=== PATIENT | male | born 1965 | race African-American/Black ===

== ENCOUNTER 2017-11-27 15:38 | Inpatient (IN) | payer OTHER ==
[2017-11-27] MEDS: NORMAL SALINE IV (16:27)
[2017-11-27] MEDS: ONDANSETRON PF 4 MG/2 ML VIAL. IV (16:35)
[2017-11-27 16:39] LABS: BASO % 0 % (0-3); EOS % 1 % (0-3); HEMATOCRIT 39.3 % (39.0-53.0); HEMOGLOBIN 13.7 g/dL (13.0-17.5); LYMPH # 0.3 x10^3/uL (1.0-4.8); LYMPH % 4 % (24-48); MEAN CORPUSCULAR HEMOGLOBIN 31 pg (25-35); MEAN CORPUSCULAR HGB CONC 35 g/dL (31-37); MEAN CORPUSCULAR VOLUME 89 fL (79-100); MONO # 0.5 x10^3/uL (0.0-1.1); MONO % 7 % (0-9); NEUT # 6.1 x10^3uL (1.8-7.7); NEUT % 88 % (31-73); PLATELET COUNT 212 x10^3/uL (140-400); RED BLOOD COUNT 4.43 x10^6/uL (4.30-5.70); RED CELL DISTRIBUTION WIDTH 13.4 % (11.5-14.5)
[2017-11-27 16:40] LABS: ADD MAN DIFF? YES
[2017-11-27 16:47] LABS: ANION GAP 13 (6-14); BLOOD UREA NITROGEN 10 mg/dL (8-26); BUN/CREATININE RATIO 9 (6-20); CALCIUM 8.9 mg/dL (8.5-10.1); CARBON DIOXIDE 23 mmol/L (21-32); CHLORIDE 102 mmol/L (98-107); CREATININE 1.1 mg/dL (0.7-1.3); GFR 84.4; GLUCOSE 98 mg/dL (70-99); POTASSIUM 3.7 mmol/L (3.5-5.1); SODIUM 138 mmol/L (136-145)
[2017-11-27 16:53] LABS: ALBUMIN 4.2 g/dL (3.4-5.0); ALBUMIN/GLOBULIN RATIO 1.1 (1.0-1.7); ALK PHOS 63 U/L (46-116); ALT (SGPT) 18 U/L (16-63); AST (SGOT) 16 U/L (15-37); TOTAL BILIRUBIN 0.4 mg/dL (0.2-1.0); TOTAL PROTEIN 7.9 g/dL (6.4-8.2)
[2017-11-27 16:58] LABS: TROPONINI < 0.017 ng/mL (0.000-0.055)
[2017-11-27 17:01] LABS: NT-PRO BNP 121 pg/mL (0-124)
[2017-11-27 17:01] LABS: CKMB INDEX 0.6 % (0-4); CREATINE KINASE 154 U/L (39-308)
[2017-11-27 17:06] LABS: INFLUENZA A PATIENT NEGATIVE (NEGATIVE); INFLUENZA B PATIENT NEGATIVE (NEGATIVE); OBC FLU VALID
[2017-11-27 17:07] LABS: LACTIC ACID 0.9 mmol/L (0.4-2.0)
[2017-11-27] MEDS ORDERED: CONTRAST GIVEN MC (17:45)
[2017-11-27] MEDS ORDERED: IOHEXOL 300 MG/ML 100ML VIAL. IV (17:45)
[2017-11-27 17:53] LABS: D-DIMER 0.29 ug/mlFEU (0.00-0.50)
[2017-11-27] MEDS: IPRATRPIUM/ALBUTEROL 0.5/2.5MG 3 ML NEBU. NEB (18:06)
[2017-11-27 18:17] LABS: % BANDS 4 % (0-9); % BASOS 1 % (0-3); % LYMPHS 6 % (24-48); % MONOS 7 % (0-10); % SEGS 82 % (35-66); PLT ESTIMATE ADEQUATE (ADEQUATE)
[2017-11-27 18:18] LABS: BILIRUBIN,URINE NEGATIVE (NEG); CLARITY,URINE CLEAR; COLOR,URINE YELLOW; GLUCOSE,URINE NEGATIVE (NEG); NITRITE,URINE NEGATIVE (NEG); PROTEIN,URINE NEGATIVE (NEG-TRACE); UROBILINOGEN,URINE 0.2 mg/dL (0.2 mg/dL)
[2017-11-27 18:35] LABS: BACTERIA,URINE 0 /HPF (0-FEW); WBC,URINE 0 /HPF (0-4)
[2017-11-27] MEDS ORDERED: ACETAMINOPHEN 325 MG TABLET. PO (23:00)
[2017-11-27] MEDS ORDERED: ALBUTEROL SULFATE 2.5 MG/3 ML NEBU. NEB (23:00)
[2017-11-27] MEDS: methylPREDNISolone SOD SUCC PF 125 MG/2 ML VIAL. IV (23:10)
[2017-11-27] MEDS: IBUPROFEN 400 MG TABLET. PO (23:25)
[2017-11-27] MEDS: POTASSIUM CL 20MEQ-0.45% NACL 1,000 ML IV (23:33)
[2017-11-28] MEDS: HYDROcodone/APAP 5/325MG 1 TAB TABLET PO ×2 (00:30→02:41)
[2017-11-28] MEDS: methylPREDNISolone SOD SUCC PF 40 MG/ML VIAL. IV (06:05)
[2017-11-28 06:54] LABS: ADD MAN DIFF? NO
[2017-11-28 07:00] LABS: BASO % 0 % (0-3); EOS % 0 % (0-3); HEMATOCRIT 35.4 % (39.0-53.0); HEMOGLOBIN 11.8 g/dL (13.0-17.5); LYMPH # 0.2 x10^3/uL (1.0-4.8); LYMPH % 4 % (24-48); MEAN CORPUSCULAR HEMOGLOBIN 30 pg (25-35); MEAN CORPUSCULAR HGB CONC 34 g/dL (31-37); MEAN CORPUSCULAR VOLUME 90 fL (79-100); MONO # 0.1 x10^3/uL (0.0-1.1); MONO % 1 % (0-9); NEUT # 4.2 x10^3uL (1.8-7.7); NEUT % 94 % (31-73); PLATELET COUNT 171 x10^3/uL (140-400); RED BLOOD COUNT 3.91 x10^6/uL (4.30-5.70); RED CELL DISTRIBUTION WIDTH 13.6 % (11.5-14.5); WHITE BLOOD COUNT 4.5 x10^3/uL (4.0-11.0)
[2017-11-28] MEDS: IPRATRPIUM/ALBUTEROL 0.5/2.5MG 3 ML NEBU. NEB ×2 (07:34→11:25)
[2017-11-28 07:35] LABS: ANION GAP 10 (6-14); BLOOD UREA NITROGEN 10 mg/dL (8-26); CALCIUM 7.9 mg/dL (8.5-10.1); CARBON DIOXIDE 22 mmol/L (21-32); CHLORIDE 107 mmol/L (98-107); CREATININE 1.1 mg/dL (0.7-1.3); GFR 84.4; GLUCOSE 132 mg/dL (70-99); POTASSIUM 4.2 mmol/L (3.5-5.1); SODIUM 139 mmol/L (136-145)
== END 2017-11-28 12:10 | disposition home or self-care (01) | DRG 191 ==
LOC: ER 15:38 → 5 SOUTH 19:38
DX: J44.1 Chronic obstructive pulmonary disease with (acute) exacerbation (principal); R65.10 Systemic inflammatory response syndrome (SIRS) of non-infectious origin without acute organ dysfunction; I95.9 Hypotension, unspecified; I10 Essential (primary) hypertension; F17.210 Nicotine dependence, cigarettes, uncomplicated; J11.1 Influenza due to unidentified influenza virus with other respiratory manifestations; K64.9 Unspecified hemorrhoids; R00.0 Tachycardia, unspecified
CPT/HCPCS: 36415; 71045; 71275; 80048; 80053; 81001; 82553; 83605; 83880; 84484; 85007; 85025; 85379; 87040; 87804; 87804-59; 93005; 94640; 96361; 96374; 99285-25; J2405; J2920; J2930; J7030; J7620

== ENCOUNTER 2019-08-16 18:42 | Emergency (ER) | payer SELFPAY ==
[~2019-08-16] VITALS: Ht 170.2 cm; Wt 68.0 kg
[~2019-08-16 18:42] MED LIST: ALBU2.5V14 NEB; OSEL75CA PO; PRED-220 PO; PRED50TA PO; VENTOLIN HFA18 GM INH
[2019-08-16] MEDS ORDERED: methylPREDNISolone SOD SUCC PF 125 MG/2 ML VIAL. IV ONE (19:00)
[2019-08-16] MEDS ORDERED: IPRATROPIUM BROMIDE 0.5 MG/2.5 ML NEBU. NEB ONE (19:00)
[2019-08-16] MEDS ORDERED: ALBUTEROL SULFATE 2.5 MG/3 ML NEBU. CONT NEB ONE (19:00)
[2019-08-16 19:06] LABS: BASO % 1 % (0-3); EOS # 0.4 x10^3/uL (0.0-0.7); EOS % 6 % (0-3); HEMATOCRIT 41.2 % (39.0-53.0); HEMOGLOBIN 14.2 g/dL (13.0-17.5); LYMPH # 1.4 x10^3/uL (1.0-4.8); LYMPH % 25 % (24-48); MEAN CORPUSCULAR HEMOGLOBIN 31 pg (25-35); MEAN CORPUSCULAR HGB CONC 35 g/dL (31-37); MEAN CORPUSCULAR VOLUME 90 fL (79-100); MONO # 0.6 x10^3/uL (0.0-1.1); MONO % 11 % (0-9); NEUT # 3.3 x10^3/uL (1.8-7.7); NEUT % 57 % (31-73); PLATELET COUNT 201 x10^3/uL (140-400); RED BLOOD COUNT 4.58 x10^6/uL (4.30-5.70); RED CELL DISTRIBUTION WIDTH 13.6 % (11.5-14.5); WHITE BLOOD COUNT 5.8 x10^3/uL (4.0-11.0)
--- NOTE | 2019-08-16 19:10 | PHYS DOC ---
Past Medical History Past Medical History: COPD Past Surgical History: Other Additional Past Surgical Histo: HEMORRHOID Alcohol Use: Occasionally Drug Use: None Adult General Chief Complaint Chief Complaint: SHORTNESS OF BREATH HPI HPI Patient is a 54-year-old male who presents with complaint of shortness of breath that started earlier today. Patient states that he had been using his nebulizer throughout the day as well as inhalers without improvement. Patient gotten so short of breath that he called EMS and EMS had given a breathing treatment while in route. Patient does indicate that he is still feeling very short of breath. EMS states that patient's oxygen saturation was 94% on room air. Patient denies any chest pain. He also denies any fever. He does indicate he has a history of asthma.[] Review of Systems Review of Systems Constitutional: Denies fever or chills [] Respiratory: Denies cough or shortness of breath [] Cardiovascular: No additional information not addressed in HPI [] Integument: Denies rash or skin lesions [] Neurologic: Denies headache, focal weakness or sensory changes [] All other systems were reviewed and found to be within normal limits, except as documented in this note. Current Medications Current Medications Current Medications Medications (Trade) Dose Ordered Sig/Melo Start Time Stop Time Status Last Admin Dose Admin Albuterol Sulfate (Ventolin Neb Soln) 10 mg 1X ONCE 08/16/19 19:00 08/16/19 19:01 DC 08/16/19 18:54 10 MG Ipratropium [place] (Atrovent) 0.5 mg 1X ONCE 08/16/19 19:00 08/16/19 19:01 DC 08/16/19 18:53 0.5 MG Methylprednisolone Sodium Succinate (SOLU-Medrol 125MG VIAL) 125 mg 1X ONCE 08/16/19 19:00 08/16/19 19:01 DC 08/16/19 19:00 125 MG Allergies Allergies Allergies Coded Allergies Type Severity Reaction Last Updated Verified No Known Drug Allergies 11/27/17 No Physical Exam Physical Exam Constitutional: Well developed, well nourished, no acute distress, non-toxic appearance. [] HENT: Normocephalic, atraumatic, bilateral external ears normal, oropharynx moist, no oral exudates, nose normal. [] Eyes: PERRLA, EOMI, conjunctiva normal, no discharge. [] Neck: Normal range of motion, no tenderness, supple, no stridor. [] Cardiovascular: Regular rate and rhythm[] Lungs & Thorax: Diminished breath sounds are noted bilaterally with fine inspiratory and expiratory wheezes to auscultation [] Abdomen: Bowel sounds normal, soft, no tenderness, no masses, no pulsatile masses. [] Skin: Warm, dry, no erythema, no rash. [] Extremities: No tenderness, no cyanosis, no clubbing, ROM intact, no edema. [] Neurologic: Alert and oriented X 3, no focal deficits noted. [] Current Patient Data Vital Signs Vital Signs Date Time Temp Pulse Resp B/P (MAP) Pulse Ox O2 Delivery O2 Flow Rate FiO2 08/16/19 18:55 94 Room Air 08/16/19 18:42 97.8 102 30 130/90 (103) 97.8 Lab Values Laboratory Tests Test 08/16/19 18:52 White Blood Count 5.8 x10^3/uL (4.0-11.0) Red Blood Count 4.58 x10^6/uL (4.30-5.70) Hemoglobin 14.2 g/dL (13.0-17.5) Hematocrit 41.2 % (39.0-53.0) Mean Corpuscular Volume 90 fL (79-100) Mean Corpuscular Hemoglobin 31 pg (25-35) Mean Corpuscular Hemoglobin Concent 35 g/dL (31-37) Red Cell Distribution Width 13.6 % (11.5-14.5) Platelet Count 201 x10^3/uL (140-400) Neutrophils (%) (Auto) 57 % (31-73) Lymphocytes (%) (Auto) 25 % (24-48) Monocytes (%) (Auto) 11 % (0-9) H Eosinophils (%) (Auto) 6 % (0-3) H Basophils (%) (Auto) 1 % (0-3) Neutrophils # (Auto) 3.3 x10^3/uL (1.8-7.7) Lymphocytes # (Auto) 1.4 x10^3/uL (1.0-4.8) Monocytes # (Auto) 0.6 x10^3/uL (0.0-1.1) Eosinophils # (Auto) 0.4 x10^3/uL (0.0-0.7) Basophils # (Auto) 0.0 x10^3/uL (0.0-0.2) D-Dimer ([place]) < 0.27 ug/mlFEU Sodium Level 145 mmol/L (136-145) Potassium Level 4.0 mmol/L (3.5-5.1) Chloride Level 110 mmol/L (98-107) H Carbon Dioxide Level 26 mmol/L (21-32) Anion Gap 9 (6-14) Blood Urea Nitrogen 10 mg/dL (8-26) Creatinine 1.1 mg/dL (0.7-1.3) Estimated GFR (Cockcroft-Gault) 83.8 BUN/Creatinine Ratio 9 (6-20) Glucose Level 93 mg/dL (70-99) Calcium Level 9.3 mg/dL (8.5-10.1) Total Bilirubin 0.2 mg/dL (0.2-1.0) Aspartate Amino Transferase (AST) 21 U/L (15-37) Alanine Aminotransferase (ALT) 26 U/L (16-63) Alkaline Phosphatase 76 U/L (46-116) Troponin I Quantitative < 0.017 ng/mL (0.000-0.055) QH-Sqn-Y-Type Natriuretic Peptide 36 pg/mL (0-124) Total Protein 7.1 g/dL (6.4-8.2) Albumin 3.9 g/dL (3.4-5.0) Albumin/Globulin Ratio 1.2 (1.0-1.7) Laboratory Tests 08/16/19 18:52 Laboratory Tests 08/16/19 18:52 EKG EKG [] Interpretation Time: EKG demonstrates normal sinus rhythm with rate of 92. Radiology/Procedures Radiology/Procedures [] Impressions: PROCEDURE: PORTABLE CHEST 1V PORTABLE CHEST 1V Clinical History: Dyspnea Technique: AP view of the chest was obtained at 08/16/2019 6:47 PM. Comparison: May 09, 2019. Findings: The cardiomediastinal silhouette is normal. The pulmonary vasculature is normal. The lungs and pleural margins are clear. Impression: No evidence of an acute cardiopulmonary process. Electronically signed by: Nicolas Benitez III, MD (08/16/2019 7:15 PM) [facility] DICTATED and SIGNED BY: NICOLAS BENITEZ III, MD DATE: 08/16/191914 Course & Med Decision Making Course & Med Decision Making Pertinent Labs and Imaging studies reviewed. (See chart for details) Patient moved to room upon arrival was evaluated by your medical staff after which an IV was established and blood work was drawn. Patient was given 1 hour continuous nebulizer treatment. Chest x-ray was completed and was unremarkable. Patient's blood work unremarkable as well. Patient reevaluated after respiratory treatment and stating that he is feeling much better at this time. We did discuss options of admission versus discharge home with outpatient steroids and patient indicates that he would like to be discharged home. Patient's oxygen saturation noted to be 95-96% on room air. Repeat auscultation of the lungs demonstrates much better air movement at this time with only a few end expiratory wheezes noted. Patient will be discharged home. Dragon Disclaimer Dragon Disclaimer This electronic medical record was generated, in whole or in part, using a voice recognition dictation system. Departure Departure Impression: Primary Impression: COPD exacerbation Disposition: 01 HOME, SELF-CARE Condition: STABLE Referrals: ELIAS HANCOCK MD (PCP) Patient Instructions: Chronic Obstructive Pulmonary Disease Exacerbation Scripts Methylprednisolone (MEDROL) 4 Mg Tab.ds.pk 1 PKG PO UD, #1 PKG Prov: FORTINO HIRSCH Jr. DO 08/16/19 FORTINO HIRSCH Jr. DO Aug 16, 2019 19:10
--- NOTE | 2019-08-16 19:18 | RAD ---
PORTABLE CHEST 1V Clinical History: Dyspnea Technique: AP view of the chest was obtained at 08/16/2019 6:47 PM. Comparison: May 09, 2019. Findings: The cardiomediastinal silhouette is normal. The pulmonary vasculature is normal. The lungs and pleural margins are clear. Impression: No evidence of an acute cardiopulmonary process. Electronically signed by: Lalo Benitez III, MD (08/16/2019 7:15 PM) [facility]
[2019-08-16 19:29] LABS: CALCIUM 9.3 mg/dL (8.5-10.1); CREATININE 1.1 mg/dL (0.7-1.3); GFR 83.8
[2019-08-16 19:35] LABS: ALBUMIN 3.9 g/dL (3.4-5.0); ALBUMIN/GLOBULIN RATIO 1.2 (1.0-1.7); TOTAL BILIRUBIN 0.2 mg/dL (0.2-1.0); TOTAL PROTEIN 7.1 g/dL (6.4-8.2)
[2019-08-16 20:21] VITALS: BP 135/89
[2019-08-16] MEDS ORDERED: METH4TAB2 PO (20:32)
--- NOTE | 2019-08-17 05:51 | EKG ---
[facility] [address] [place] [address] Test Date: 2019-08-16 Test Time: 19:06:54 Pat Name: TOD HIRSCH Department: Room: Gender: M Home Health Care Social Worker: : 1965 Requested By: FORTINO HIRSCH Order Number: [id number] Reading MD: Measurements Intervals [place] Rate: 92 P: 44 NH: 180 QRS: 88 QRSD: 76 T: 63 QT: 326 QTc: 407 Interpretive Statements SINUS RHYTHM NON SPECIFIC ST-T ABNORMALITY (ELEVATION) OTHERWISE NORMAL ECG No previous ECG available for comparison
== END 2019-08-16 20:52 | disposition home or self-care (01) ==
LOC: ER 18:42
DX: J44.1 Chronic obstructive pulmonary disease with (acute) exacerbation (principal)
CPT/HCPCS: 36415; 71045; 80053; 83880; 84484; 85025; 85379; 93005; 94644; 96374; 99285; J2930; J7613; J7644

== ENCOUNTER 2019-11-03 11:45 | Emergency (ER) | payer SELFPAY ==
[~2019-11-03] VITALS: Ht 170.2 cm; Wt 68.0 kg
[~2019-11-03 11:45] MED LIST changes: +METH4TAB2 PO
[2019-11-03 12:20] LABS: BASO % 1 % (0-3); EOS # 0.4 x10^3/uL (0.0-0.7); EOS % 5 % (0-3); HEMATOCRIT 42.8 % (39.0-53.0); HEMOGLOBIN 14.9 g/dL (13.0-17.5); LYMPH # 1.3 x10^3/uL (1.0-4.8); LYMPH % 18 % (24-48); MEAN CORPUSCULAR HEMOGLOBIN 31 pg (25-35); MEAN CORPUSCULAR HGB CONC 35 g/dL (31-37); MEAN CORPUSCULAR VOLUME 89 fL (79-100); MONO # 0.5 x10^3/uL (0.0-1.1); MONO % 7 % (0-9); NEUT % 69 % (31-73); PLATELET COUNT 223 x10^3/uL (140-400); RED CELL DISTRIBUTION WIDTH 13.4 % (11.5-14.5); WHITE BLOOD COUNT 7.3 x10^3/uL (4.0-11.0)
[2019-11-03] MEDS: IPRATRPIUM/ALBUTEROL 0.5/2.5MG 3 ML NEBU. NEB ONE (12:24)
[2019-11-03] MEDS: IV NORMAL SALINE 1000ML BAG 1,000 ML IV ONE (12:26)
--- NOTE | 2019-11-03 12:32 | PHYS DOC ---
Past Medical History Past Medical History: COPD Past Surgical History: Other Additional Past Surgical Histo: HEMORRHOID Smoking: Cigarettes Alcohol Use: Occasionally Drug Use: None Adult General Chief Complaint Chief Complaint: SHORTNESS OF BREATH HPI HPI Patient is a 54 year old male with PMH of COPD who presents with SOB. Pt reports having SOB and non productive cough started 2 days ago. He also has some URI for the past few days. Pt tried to used his Nebulizer at home without minimal relieve. Pt has not received flu or pneumonia shot. Denies any chest pain, N/V. He was at the ED for similar symptoms and was diagnosed with COPD exacerabation 2 months ago. Denies any recent travel, sick contact. Review of Systems Review of Systems Constitutional: Denies fever or chills Eyes: Denies redness or eye pain HENT: Denies nasal congestion or sore throat Respiratory: Positive cough or shortness of breath Cardiovascular: Denies chest pain or palpitations GI: Denies abdominal pain, nausea, or vomiting : Denies dysuria or hematuria Musculoskeletal: Denies back pain or joint pain Integument: Denies rash or skin lesions Neurologic: Denies headache, focal weakness or sensory changes Complete systems were reviewed and found to be within normal limits, except as documented in this note. Current Medications Current Medications Current Medications Medications (Trade) Dose Ordered Sig/Melo Start Time Stop Time Status Last Admin Dose Admin Albuterol/ Ipratropium (Duoneb) 3 ml 1X ONCE 11/03/19 12:15 11/03/19 12:16 DC 11/03/19 12:24 3 ML Dexamethasone (Decadron) 10 mg 1X ONCE 11/03/19 13:15 11/03/19 13:17 DC Sodium Chloride 1,000 ml @ 1,000 mls/hr 1X ONCE 11/03/19 12:15 11/03/19 13:14 DC 11/03/19 12:26 1,000 MLS/HR Allergies Allergies Allergies Coded Allergies Type Severity Reaction Last Updated Verified No Known Drug Allergies 11/27/17 No Physical Exam Physical Exam Constitutional: Well developed, well nourished, no acute distress, non-toxic appearance HENT: Normocephalic, atraumatic, oropharynx moist Eyes: PERRL, EOMI, conjunctiva normal, no discharge Neck: Normal range of motion, no tenderness, supple Cardiovascular: Heart rate normal, regular rhythm Lungs & Thorax: bilateral diffuse expiratory wheezing, no crackle Abdomen: Soft, no tenderness Skin: Warm, dry, no erythema, no rash Back: No tenderness, no CVA tenderness Extremities: No tenderness, ROM intact, no edema Neurologic: Alert and oriented X 3, normal motor function, normal sensory function, no focal deficits noted Psychologic: Affect normal, judgement normal, mood normal Current Patient Data Vital Signs Vital Signs Date Time Temp Pulse Resp B/P (MAP) Pulse Ox O2 Delivery O2 Flow Rate FiO2 11/03/19 12:24 96 Room Air 11/03/19 11:55 97.6 89 24 121/81 (94) 97.6 Lab Values Laboratory Tests Test 11/03/19 12:05 11/03/19 12:30 White Blood Count 7.3 x10^3/uL (4.0-11.0) Red Blood Count 4.80 x10^6/uL (4.30-5.70) Hemoglobin 14.9 g/dL (13.0-17.5) Hematocrit 42.8 % (39.0-53.0) Mean Corpuscular Volume 89 fL (79-100) Mean Corpuscular Hemoglobin 31 pg (25-35) Mean Corpuscular Hemoglobin Concent 35 g/dL (31-37) Red Cell Distribution Width 13.4 % (11.5-14.5) Platelet Count 223 x10^3/uL (140-400) Neutrophils (%) (Auto) 69 % (31-73) Lymphocytes (%) (Auto) 18 % (24-48) L Monocytes (%) (Auto) 7 % (0-9) Eosinophils (%) (Auto) 5 % (0-3) H Basophils (%) (Auto) 1 % (0-3) Neutrophils # (Auto) 5.0 x10^3/uL (1.8-7.7) Lymphocytes # (Auto) 1.3 x10^3/uL (1.0-4.8) Monocytes # (Auto) 0.5 x10^3/uL (0.0-1.1) Eosinophils # (Auto) 0.4 x10^3/uL (0.0-0.7) Basophils # (Auto) 0.0 x10^3/uL (0.0-0.2) Sodium Level 139 mmol/L (136-145) Potassium Level 3.8 mmol/L (3.5-5.1) Chloride Level 105 mmol/L (98-107) Carbon Dioxide Level 24 mmol/L (21-32) Anion Gap 10 (6-14) Blood Urea Nitrogen 9 mg/dL (8-26) Creatinine 1.1 mg/dL (0.7-1.3) Estimated GFR (Cockcroft-Gault) 83.8 BUN/Creatinine Ratio 8 (6-20) Glucose Level 97 mg/dL (70-99) Lactic Acid Level 1.0 mmol/L (0.4-2.0) Calcium Level 9.0 mg/dL (8.5-10.1) Magnesium Level 1.9 mg/dL (1.8-2.4) Total Bilirubin 0.6 mg/dL (0.2-1.0) Aspartate Amino Transferase (AST) 19 U/L (15-37) Alanine Aminotransferase (ALT) 21 U/L (16-63) Alkaline Phosphatase 63 U/L (46-116) Creatine Kinase 144 U/L (39-308) Creatine Kinase MB (Mass) 1.4 ng/mL (0.0-3.6) Creatine Kinase MB Relative Index 1.0 % (0-4) Troponin I Quantitative < 0.017 ng/mL (0.000-0.055) UC-[place]-N-Type Natriuretic Peptide 67 pg/mL (0-124) Total Protein 7.8 g/dL (6.4-8.2) Albumin 4.0 g/dL (3.4-5.0) Albumin/Globulin Ratio 1.1 (1.0-1.7) Influenza Type A Antigen Negative (NEGATIVE) Influenza Type B Antigen Negative (NEGATIVE) Laboratory Tests 11/03/19 12:05 Laboratory Tests 11/03/19 12:05 EKG EKG 11:59:22 sinus rhythm with rate of 89. Wandering baseline. No ST elevation. Radiology/Procedures Radiology/Procedures [] Course & Med Decision Making Course & Med Decision Making Pertinent Labs and Imaging studies reviewed. (See chart for details) Patient is a 54 year old male with PMH of COPD who presents with SOB. DDX considered: COPD exacerbation, PNA, URI, bronchitis, ACS, doubt PE base on unrem arkable vitals, HPI and PE exams. Will order labs, CXR, EKG. Provide DuoNeb at bedside. 1:12pm unremarkable labs, neg troponin I. neg flu. CXR shows now acute process. Most likely COPD exacerbation. 1:36 pm Pt improved with no wheezing. Dispo: Will discharge. Shana Disclaimer Dragon Disclaimer This electronic medical record was generated, in whole or in part, using a voice recognition dictation system. Departure Departure Impression: Primary Impression: COPD exacerbation Disposition: 01 HOME, SELF-CARE Condition: STABLE Referrals: ELIAS HANCOCK MD (PCP) Patient Instructions: Chronic Obstructive Pulmonary Disease Exacerbation, [id number], Shortness of Breath, [id number] Scripts Benzonatate (TESSALON PERLE) 100 Mg Capsule 100 MG PO TID PRN for COUGH, #20 CAP Prov: DASHA RANDLE DO 11/03/19 Prednisone (PREDNISONE) 20 Mg Tablet 2 TAB PO DAILY, #8 TAB Prov: DASHA RANDLE DO 11/03/19 Albuterol Sulfate (ALBUTEROL SULFATE CONC NEB SOLN) 2.5 Mg/0.5 Ml Vial.neb 1 VIAL NEB Q4-6HRS PRN for WHEEZING, #60 VIAL Prov: DASHA RANDLE DO 11/03/19 Albuterol Sulfate (Proair Hfa) 8.5 Gm Hfa.aer.ad 2 PUFF IH PRN Q4-6HRS PRN for wheezing for 21 Days, #1 INHALER 0 Refills Prov: DASHA RANDLE DO 11/03/19 DASHA RANDLE DO Nov 03, 2019 12:32
[2019-11-03 12:33] LABS: CREATININE 1.1 mg/dL (0.7-1.3); GFR 83.8; POTASSIUM 3.8 mmol/L (3.5-5.1)
[2019-11-03 12:40] LABS: ALBUMIN/GLOBULIN RATIO 1.1 (1.0-1.7); MAGNESIUM 1.9 mg/dL (1.8-2.4); TOTAL BILIRUBIN 0.6 mg/dL (0.2-1.0); TOTAL PROTEIN 7.8 g/dL (6.4-8.2)
--- NOTE | 2019-11-03 12:55 | RAD ---
Chest radiograph 11/03/2019 12:10 PM INDICATION: Dyspnea 08/16/2019 COMPARISON: None available TECHNIQUE: Frontal and lateral views of the chest are provided. FINDINGS: The cardiomediastinal silhouette is within normal limits. There are no pleural effusions. There is no pulmonary vascular congestion. There is no pneumothorax. The lungs are clear. No significant osseous abnormality is identified. IMPRESSION: No acute cardiopulmonary process. Electronically signed by: Shira Cao MD (11/03/2019 12:52 PM) [facility]
[2019-11-03 12:56] LABS: INFLUENZA A PATIENT NEGATIVE (NEGATIVE); INFLUENZA B PATIENT NEGATIVE (NEGATIVE)
[2019-11-03] MEDS ORDERED: ALBU2.5V14 NEB (13:27)
[2019-11-03] MEDS ORDERED: ALBU2.5V8 IH (13:27)
[2019-11-03] MEDS ORDERED: PRED20TA PO (13:27)
[2019-11-03] MEDS ORDERED: BENZ100C PO (13:27)
[2019-11-03 13:39] VITALS: BP 130/87
[2019-11-03] MEDS: DEXAMETHASONE 4 MG TABLET PO ONE (13:39)
--- NOTE | 2019-11-04 06:03 | EKG ---
[facility] [address] [place] [address] Test Date: 2019-11-03 Test Time: 11:59:22 Pat Name: TOD HIRSCH Department: Room: Gender: M Director Of Partnerships: : 1965 Requested By: DASHA RANDLE Order Number: [id number] Reading MD: Measurements Intervals [place] Rate: 88 P: 61 SC: 166 QRS: 84 QRSD: 82 T: 53 QT: 340 QTc: 414 Interpretive Statements SINUS RHYTHM NORMAL ECG No previous ECG available for comparison
== END 2019-11-03 13:50 | disposition home or self-care (01) ==
LOC: ER 11:45
DX: J44.1 Chronic obstructive pulmonary disease with (acute) exacerbation (principal); R06.02 Shortness of breath; F17.210 Nicotine dependence, cigarettes, uncomplicated; Z98.890 Other specified postprocedural states
CPT/HCPCS: 36415; 71046; 80053; 82553; 83605; 83735; 83880; 84484; 85025; 87804; 93005; 94640; 99285; J7030; J7620; J8540

== ENCOUNTER 2020-06-26 03:05 | Emergency (ER) | payer OTHER ==
[~2020-06-26] VITALS: Ht 180.3 cm; Wt 72.7 kg
[~2020-06-26 03:05] MED LIST changes: +ALBU2.5V8 IH; +BENZ100C PO; +PRED20TA PO
[2020-06-26 03:49] LABS: BASO % 0 % (0-3); EOS # 0.2 x10^3/uL (0.0-0.7); EOS % 1 % (0-3); HEMATOCRIT 43.2 % (39.0-53.0); HEMOGLOBIN 14.7 g/dL (13.0-17.5); LYMPH # 1.3 x10^3/uL (1.0-4.8); LYMPH % 12 % (24-48); MEAN CORPUSCULAR HEMOGLOBIN 31 pg (25-35); MEAN CORPUSCULAR HGB CONC 34 g/dL (31-37); MEAN CORPUSCULAR VOLUME 91 fL (79-100); MONO # 0.9 x10^3/uL (0.0-1.1); MONO % 8 % (0-9); NEUT # 8.9 x10^3/uL (1.8-7.7); NEUT % 79 % (31-73); PLATELET COUNT 205 x10^3/uL (140-400); RED BLOOD COUNT 4.73 x10^6/uL (4.30-5.70); WHITE BLOOD COUNT 11.3 x10^3/uL (4.0-11.0)
[2020-06-26 03:58] LABS: CALCIUM 8.8 mg/dL (8.5-10.1); CREATININE 1.2 mg/dL (0.7-1.3); GFR 75.5; POTASSIUM 3.4 mmol/L (3.5-5.1)
[2020-06-26 04:04] LABS: ALBUMIN 3.9 g/dL (3.4-5.0); C-REACTIVE PROTEIN 2.6 mg/L (0-3.3); TOTAL BILIRUBIN 0.5 mg/dL (0.2-1.0); TOTAL PROTEIN 7.7 g/dL (6.4-8.2)
[2020-06-26] MEDS ORDERED: IPRATRPIUM/ALBUTEROL 0.5/2.5MG 3 ML NEBU. NEB ONE (05:15)
[2020-06-26] MEDS ORDERED: DEXAMETHASONE SOD PHOS 20 MG/5 ML VIAL. IVP ONE (05:15)
--- NOTE | 2020-06-26 05:47 | RAD ---
Study: CR CHEST AP ONLY Indication: Cough. Comparison: 11/03/2019 Findings: Unchanged cardiomediastinal silhouette and she. The aeration pattern of both lungs is similar to the 11/03/2019 comparison. The diaphragm is flattened. No pneumothorax, lobar consolidation or layering effusion. Atherosclerotic calcifications at the aortic arch. Impression: 1. No newly seen localized airspace abnormality throughout either lung. Note is made that an atypical infectious process cannot be excluded based off the results of this study alone. 2. Redemonstrated findings typical of emphysema. Electronically signed by: LETICIA GAMA MD (06/26/2020 5:44 AM) [id number]
--- NOTE | 2020-06-26 06:28 | PHYS DOC ---
Past Medical History Past Medical History: COPD (NAHOMY SPIVEY MD) Past Surgical History: Other Additional Past Surgical Histo: HEMORRHOID (NAHOMY SPIVEY MD) Smoking Status: Current Every Day Smoker Alcohol Use: None Drug Use: None (NAHOMY SPIVEY MD) General Adult EDM: Chief Complaint: SHORTNESS OF BREATH HPI: HPI: Patient is a 55-year-old male who presents to the emergency room complaining of shortness of breath. He states that this started over the last couple of days. He states he ran out of his inhalers. He denies any cough, fever, chills, sweats, abdominal pain, nausea, vomiting, chest pain. He states he just feels very out of breath. He tried a DuoNeb treatment at home without relief. The last time he was on steroids was 3 months ago. He is never required intubation for COPD. (NAHOMY SPIVEY MD) Review of Systems: Review of Systems: General: Denies fever, chills, sweats, fatigue Eyes: Denies drainage, blurred vision, eye redness HENT: Denies rhinorrhea, sore throat, earache Respiratory: Denies cough. Reports shortness of breath, wheezing Cardiac: Denies edema, palpitations, chest pain GI: Denies abdominal pain, Nausea, vomiting MSK: Denies back pain, neck pain Skin: Denies rash, jaundice Neuro: Denies headache, dizziness Psychiatric: Denies SI/HI (NAHOMY SPIVEY MD) Heart Score: Risk Factors: Risk Factors: DM, Current or recent (<one month) smoker, HTN, HLP, family history of CAD, obesity. Risk Scores: Score 0 - 3: 2.5% MACE over next 6 weeks - Discharge Home Score 4 - 6: 20.3% MACE over next 6 weeks - Admit for Clinical Observation Score 7 - 10: 72.7% MACE over next 6 weeks - Early Invasive Strategies (NAHOMY SPIVEY MD) Current Medications: Current Medications Medications (Trade) Dose Ordered Sig/Melo Start Time Stop Time Status Last Admin Dose Admin Albuterol/ Ipratropium (Duoneb) 3 ml 1X ONCE 06/26/20 05:15 06/26/20 05:16 DC 06/26/20 05:37 3 ML Dexamethasone Sodium Phosphate (Decadron) 10 mg 1X ONCE 06/26/20 05:15 06/26/20 05:16 DC 06/26/20 05:26 10 MG (NAHOMY SPIVEY MD) Allergies: Allergies: Allergies Coded Allergies Type Severity Reaction Last Updated Verified No Known Drug Allergies 11/27/17 No (NAHOMY SPIVEY MD) Physical Exam: PE: General: Awake, alert, NAD. Well Nourished, well hydrated. Cooperative HEENT: Atraumatic, EOMI, PERRL, airway patent, moist oral mucosa Neck: Supple, trachea midline Respiratory: CTA bilaterally, normal effort, mild diffuse wheezing CV: RRR, no murmur, cap refill <2 GI: Soft, nondistended, nontender, no masses MSK: No obvious deformities Skin: Warm, dry, intact Neuro: A&O x3, speech NL, sensory and motor grossly intact, no focal deficits Psych: Normal affect, normal mood, not suicidal or homicidal (NAHOMY SPIVEY MD) Current Patient Data: Labs: Laboratory Tests Test 06/26/20 03:30 White Blood Count 11.3 x10^3/uL (4.0-11.0) H Red Blood Count 4.73 x10^6/uL (4.30-5.70) Hemoglobin 14.7 g/dL (13.0-17.5) Hematocrit 43.2 % (39.0-53.0) Mean Corpuscular Volume 91 fL (79-100) Mean Corpuscular Hemoglobin 31 pg (25-35) Mean Corpuscular Hemoglobin Concent 34 g/dL (31-37) Red Cell Distribution Width 13.0 % (11.5-14.5) Platelet Count 205 x10^3/uL (140-400) Neutrophils (%) (Auto) 79 % (31-73) H Lymphocytes (%) (Auto) 12 % (24-48) L Monocytes (%) (Auto) 8 % (0-9) Eosinophils (%) (Auto) 1 % (0-3) Basophils (%) (Auto) 0 % (0-3) Neutrophils # (Auto) 8.9 x10^3/uL (1.8-7.7) H Lymphocytes # (Auto) 1.3 x10^3/uL (1.0-4.8) Monocytes # (Auto) 0.9 x10^3/uL (0.0-1.1) Eosinophils # (Auto) 0.2 x10^3/uL (0.0-0.7) Basophils # (Auto) 0.0 x10^3/uL (0.0-0.2) D-Dimer ([place]) < 0.27 ug/mlFEU Sodium Level 139 mmol/L (136-145) Potassium Level 3.4 mmol/L (3.5-5.1) L Chloride Level 103 mmol/L (98-107) Carbon Dioxide Level 25 mmol/L (21-32) Anion Gap 11 (6-14) Blood Urea Nitrogen 12 mg/dL (8-26) Creatinine 1.2 mg/dL (0.7-1.3) Estimated GFR (Cockcroft-Gault) 75.5 BUN/Creatinine Ratio 10 (6-20) Glucose Level 104 mg/dL (70-99) H Calcium Level 8.8 mg/dL (8.5-10.1) Total Bilirubin 0.5 mg/dL (0.2-1.0) Aspartate Amino Transferase (AST) 36 U/L (15-37) Alanine Aminotransferase (ALT) 38 U/L (16-63) Alkaline Phosphatase 79 U/L (46-116) Lactate Dehydrogenase 158 U/L (85-227) Creatine Kinase 206 U/L (39-308) Troponin I Quantitative < 0.017 ng/mL (0.000-0.055) C-Reactive Protein, Quantitative 2.6 mg/L (0-3.3) JQ-Wwm-M-Type Natriuretic Peptide 36 pg/mL (0-124) Total Protein 7.7 g/dL (6.4-8.2) Albumin 3.9 g/dL (3.4-5.0) Albumin/Globulin Ratio 1.0 (1.0-1.7) Laboratory Tests 06/26/20 03:30 Laboratory Tests 06/26/20 03:30 Vital Signs: Vital Signs Date Time Temp Pulse Resp B/P (MAP) Pulse Ox O2 Delivery O2 Flow Rate FiO2 06/26/20 05:37 99 Room Air 06/26/20 03:22 97.4 101 33 114/89 (97) 97.4 (NAHOMY SPIVEY MD) EKG: EKG: [] (NAHOMY SPIVEY MD) Radiology/Procedures: Radiology/Procedures: [] (NAHOMY SPIVEY MD) Course & Med Decision Making: Course & Med Decision Making Pertinent Labs and Imaging studies reviewed. (See chart for details) Patient is a 55-year-old male with past medical history of COPD who presents the emergency room complaining of shortness of breath. Patient has some mild wheezing. He does not have any hypoxia at this time. It appears that he is having a mild COPD exacerbation. He will be given Decadron and a DuoNeb treatment here in the emergency room. Patient discussed with oncoming physician who will assume care. At checkout reevaluation was pending. (NAHOMY SPIVEY MD) Course & Med Decision Making Patient reevaluated after breathing treatment, speaking in full sentences with no respiratory distress. Patient's lung sounds are now clear. Patient states he is feeling much better. Is requesting a refill for his Symbicort. Will prescribe prednisone and albuterol. Chest x-ray with no typical infectious process. Will DC home with strict ED return precautions for increased work of breathing or shortness of breath. Encouraged urgent outpatient follow-up with PMD and pulmonology. Life-threatening processes were considered but are low suspicion at this time, given history and physical exam. Pt was educated on all prescription medications and adverse effects. All patient's questions were answered and pt was stable at time of discharge. Differential includes acute myocardial infarction, aortic dissection, congestive heart failure, esophageal injury including rupture, surgical abdomen, arrhythmia, cardiomyopathy, myocarditis, pericarditis, peptic ulcer disease, pneumomediastinum, pneumonia, pneumothorax, pulmonary embolus, unstable angina, rib fracture, contusion, pericardial tamponade or effusion, pulmonary contusion I spoken with the patient and her caregivers. I explained the patient's condition, diagnoses and treatment plan based on the information available to me at this time. I have answered the patient and her caregiver's questions and addressed any concerns. The patient and her caregivers have a good understanding of patient's diagnosis, condition and treatment plan as can be expected at this point. Vital signs have been stable. Patient's condition is stable and appropriate for discharge from the emergency department. Patient will pursue further outpatient evaluation with primary care physician or other designated or consulting physician as outlined in the discharge instructions. The patient and/or caregivers are agreeable to this plan of care and follow-up instructions have been explained in detail. The patient and/or caregivers have received these instructions in written form and have expressed an understanding of the discharge instructions. The patient and/or caregivers are aware that any significant change of condition or worsening of symptoms should prompt immediate return to this or the closest emergency department or call to 911. (RONALD LICONA DO) Dragon Disclaimer: Dragon Disclaimer: This electronic medical record was generated, in whole or in part, using a voice recognition dictation system. (NAHOMY SPIVEY MD) Departure Departure Impression: Primary Impression: COPD exacerbation Disposition: HOME, SELF-CARE Condition: STABLE Referrals: ELIAS HANCOCK MD (PCP) Patient Instructions: Chronic Obstructive Pulmonary Disease Exacerbation Additional Instructions: Howard Roberson MD-[facility] Address: [address] [place] [address] Scripts Prednisone (PREDNISONE) 20 Mg Tablet 2 TAB PO DAILY for 4 Days, #8 TAB Prov: RONALD LICONA DO 06/26/20 Budesonide/Formoterol Fumarate (SYMBICORT 80-4.5 MCG INHALER) 10.2 Gm Hfa.aer.ad 2 PUFF IH BID, #10.2 GM 0 Refills Prov: RONALD LICONA DO 06/26/20 Albuterol Sulfate (VENTOLIN HFA INHALER) 18 Gm Hfa.aer.ad 2 PUFF INH QID for FOR ASTHMA, #1 INHALER 0 Refills Prov: RONALD LICONA DO 06/26/20 Justicifation of Admission Dx: Justifications for Admission: Justification of Admission Dx: N/A (NAHOMY SPIVEY MD) Justification of Admission Dx: N/A (RONALD LICONA DO) NAHOMY SPIVEY MD Jun 26, 2020 06:28 RONALD LICONA DO Jun 26, 2020 07:56
[2020-06-26] MEDS ORDERED: PRED20TA PO (07:56)
[2020-06-26] MEDS ORDERED: BUDE10.22 IH (07:56)
[2020-06-26] MEDS ORDERED: VENTOLIN HFA18 GM INH (07:56)
[2020-06-26 07:58] VITALS: BP 121/90
--- NOTE | 2020-06-26 08:03 | EKG ---
[facility] [address] [place] [address] Test Date: 2020-06-26 Test Time: 03:37:51 Pat Name: TOD HIRSCH Department: Room: Gender: M Erisa Attorney: : 1965 Requested By: NAHOMY SPIVEY Order Number: [id number] Reading MD: Measurements Intervals [place] Rate: 96 P: 90 [place]: 186 QRS: 91 QRSD: 80 T: 54 QT: 334 QTc: 428 Interpretive Statements SINUS RHYTHM RIGHTWARD AXIS QRS(T) CONTOUR ABNORMALITY CONSIDER ANTEROSEPTAL MYOCARDIAL DAMAGE POSSIBLY ABNORMAL ECG RI6.02 No previous ECG available for comparison
== END 2020-06-26 07:59 | disposition home or self-care (01) ==
LOC: ER 03:05
DX: J44.1 Chronic obstructive pulmonary disease with (acute) exacerbation (principal); F17.200 Nicotine dependence, unspecified, uncomplicated
CPT/HCPCS: 36415; 71045; 80053; 82550; 83615; 83880; 84484; 85025; 85379; 86140; 93005; 94640; 96374; 99285; J1100

== ENCOUNTER 2021-04-21 23:48 | Observation (INO) | payer OTHER ==
[~2021-04-21] VITALS: Ht 182.9 cm; Wt 62.0 kg
[~2021-04-21 23:48] MED LIST changes: +BUDE10.22 IH
--- NOTE | 2021-04-22 00:03 | ED.ADGEN ---
Past Medical History Past Medical History: COPD Past Surgical History: Other Additional Past Surgical Histo: HEMORRHOID Smoking Status: Current Every Day Smoker Alcohol Use: None Drug Use: None General Adult EDM: Chief Complaint: SHORTNESS OF BREATH HPI: HPI: Patient is a 55 year old male coming in via EMS for shortness of breath. Patient is a history of COPD and ran out of his rescue inhaler. Patient denies any other past medical history. Patient states he stopped smoking 3 months ago. Denies any recent cough, fevers, vomiting or diarrhea. Patient has had both of his Covid vaccines. Study 98% on EMS arrival, given 1 DuoNeb with some improvement. Review of Systems: Review of Systems: All other systems within normal limits except for as noted in the HPI Current Medications: Current Medications Medications (Trade) Dose Ordered Sig/Melo Start Time Stop Time Status Last Admin Dose Admin Acetaminophen (Tylenol) 650 mg PRN Q4HRS PRN 04/22/21 02:00 04/23/21 01:59 Albuterol Sulfate (Ventolin Neb Soln) 10 mg 1X ONCE 04/22/21 00:30 04/22/21 00:31 DC 04/22/21 00:30 10 MG Albuterol/ Ipratropium (Duoneb) 3 ml 1X ONCE 04/22/21 00:30 04/22/21 00:31 DC 04/22/21 00:30 3 ML Methylprednisolone Sodium Succinate (SOLU-Medrol 125MG VIAL) 125 mg 1X ONCE 04/22/21 00:30 04/22/21 00:31 DC 04/22/21 00:25 125 MG Ondansetron HCl (Zofran) 4 mg PRN Q8HRS PRN 04/22/21 02:00 04/23/21 01:59 Sodium Chloride 1,000 ml @ 1,000 mls/hr 1X ONCE 04/22/21 00:30 04/22/21 01:29 DC 04/22/21 00:25 1,000 MLS/HR Allergies: Allergies: Allergies Coded Allergies Type Severity Reaction Last Updated Verified No Known Drug Allergies 11/27/17 No Physical Exam: PE: Constitutional: Well developed, well nourished, no acute distress, non-toxic appearance. [] HENT: Normocephalic, atraumatic, bilateral external ears normal, nose normal. [] Eyes: PERRLA, conjunctiva normal, no discharge. [] Neck: No rigidity, supple, no stridor. [] Cardiovascular: Regular rate and rhythm, brisk cap refill [] Lungs & Thorax: Symmetric chest expansion, lung sounds clear bilaterally without rhonchi or wheezes Abdomen: Soft, nondistended. Skin: Warm, dry, no erythema, no rash. [] Back: Unremarkable Extremities: No deformities, range of motion grossly intact, no lower extremity edema [] Neurologic: Alert and oriented X 3, no focal deficits noted. [] Psychologic: Affect normal, judgement normal, mood normal. [] Current Patient Data: Labs: Laboratory Tests Test 04/22/21 00:02 04/22/21 00:05 04/22/21 00:35 POC Arterial pH 7.33 (7.35-7.45) L POC Arterial pCO2 45 mmHg (35-45) POC Arterial pO2 44 mmHg (75-100) L Arterial Blood HCO3 24 mmol/L (21-28) POC Arterial Blood O2 Sat 76 % (95-99) L POC FiO2 24 White Blood Count 8.0 x10^3/uL (4.0-11.0) Red Blood Count 4.65 x10^6/uL (4.30-5.70) Hemoglobin 14.6 g/dL (13.0-17.5) Hematocrit 42.8 % (39.0-53.0) Mean Corpuscular Volume 92 fL (79-100) Mean Corpuscular Hemoglobin 31 pg (25-35) Mean Corpuscular Hemoglobin Concent 34 g/dL (31-37) Red Cell Distribution Width 13.5 % (11.5-14.5) Platelet Count 206 x10^3/uL (140-400) Neutrophils (%) (Auto) 75 % (31-73) H Lymphocytes (%) (Auto) 12 % (24-48) L Monocytes (%) (Auto) 9 % (0-9) Eosinophils (%) (Auto) 3 % (0-3) Basophils (%) (Auto) 1 % (0-3) Neutrophils # (Auto) 6.0 x10^3/uL (1.8-7.7) Lymphocytes # (Auto) 1.0 x10^3/uL (1.0-4.8) Monocytes # (Auto) 0.7 x10^3/uL (0.0-1.1) Eosinophils # (Auto) 0.3 x10^3/uL (0.0-0.7) Basophils # (Auto) 0.1 x10^3/uL (0.0-0.2) Sodium Level 143 mmol/L (136-145) Potassium Level 4.3 mmol/L (3.5-5.1) Chloride Level 107 mmol/L (98-107) Carbon Dioxide Level 24 mmol/L (21-32) Anion Gap 12 (6-14) Blood Urea Nitrogen 7 mg/dL (8-26) L Creatinine 1.2 mg/dL (0.7-1.3) Estimated GFR (Cockcroft-Gault) 75.5 BUN/Creatinine Ratio 6 (6-20) Glucose Level 99 mg/dL (70-99) Calcium Level 8.8 mg/dL (8.5-10.1) Magnesium Level 1.9 mg/dL (1.8-2.4) Total Bilirubin 0.2 mg/dL (0.2-1.0) Aspartate Amino Transferase (AST) 26 U/L (15-37) Alanine Aminotransferase (ALT) 32 U/L (16-63) Alkaline Phosphatase 82 U/L (46-116) Troponin I Quantitative < 0.017 ng/mL (0.000-0.055) YG-Oaw-Z-Type Natriuretic Peptide 104 pg/mL (0-124) Total Protein 6.8 g/dL (6.4-8.2) Albumin 3.8 g/dL (3.4-5.0) Albumin/Globulin Ratio 1.3 (1.0-1.7) D-Dimer ([place]) < 0.27 ug/mlFEU Laboratory Tests 04/22/21 00:05 Laboratory Tests 04/22/21 00:05 Vital Signs: Vital Signs Date Time Temp Pulse Resp B/P (MAP) Pulse Ox O2 Delivery O2 Flow Rate FiO2 04/22/21 02:57 98 15 109/86 (94) 92 Room Air 04/21/21 23:55 98.9 98.9 EKG: EKG: Sinus rhythm, heart rate 94 bpm, normal axis, no ST elevation or depression, no ectopy. [] Heart Score: C/O Chest Pain: No HEART Score for Chest Pain: HEART Score for Chest Pain Response (Comments) Value History Slighlty/Non-Suspicious 0 ECG Normal 0 Age >45 - < 65 1 Risk Factors 1 or 2 Risk Factors 1 Total 2 Risk Factors: Risk Factors: DM, Current or recent (<one month) smoker, HTN, HLP, family history of CAD, obesity. Risk Scores: Score 0 - 3: 2.5% MACE over next 6 weeks - Discharge Home Score 4 - 6: 20.3% MACE over next 6 weeks - Admit for Clinical Observation Score 7 - 10: 72.7% MACE over next 6 weeks - Early Invasive Strategies Radiology/Procedures: Radiology/Procedures: [facility] [address] [place] [address] IMAGING REPORT Signed PATIENT: TOD HIRSCH ACCOUNT: [id number] : 1965 LOCATION: ER AGE: 55 SEX: M EXAM STATUS: PRE ER ORD. PHYSICIAN: CHARLENE BERNARD MD REASON: copd PROCEDURE: CHEST PA & LATERAL EXAMINATION: XR CHEST 2V CLINICAL HISTORY: COPD EXAM DATE/TIME: 04/21/2021 11:59 PM COMPARISON: 06/26/2020 FINDINGS: Lines, Tubes, and Devices: None. Cardiomediastinal Silhouette: Diminutive cardiac silhouette. Aortic atherosclerotic calcification. Lungs and Pleura: Pulmonary hyperexpansion. No evidence of focal airspace consolidation or pleural effusion. Pulmonary vasculature unremarkable. Bones and Soft Tissues: Degenerative changes of the thoracic spine. IMPRESSION: No evidence of acute cardiopulmonary abnormality. Findings consistent with COPD. Electronically signed by: Josep Mancia DO (04/22/2021 12:43 AM) [facility] DICTATED and SIGNED BY: JOSEP MANCIA DO DATE: 04/22/21 [id number] [] Course & Med Decision Making: Course & Med Decision Making Pertinent Labs and Imaging studies reviewed. (See chart for details) Patient states he is feeling better after the hour-long neb but is still tachypneic and working to breathe. Discussed discharge versus admit for observation and continued treatment. Patient would like to stay and does not feel well enough to go home. [] Dragon Disclaimer: Dragon Disclaimer: This electronic medical record was generated, in whole or in part, using a voice recognition dictation system. Departure Departure Impression: Primary Impression: COPD exacerbation Disposition: ADMITTED INPATIENT Admitting Physician: Sudheer Jarrett Condition: STABLE Referrals: ELIAS HANCOCK MD (PCP) CHARLENE BERNARD MD Apr 22, 2021 00:03
[2021-04-22 00:17] LABS: BASO # 0.1 x10^3/uL (0.0-0.2); BASO % 1 % (0-3); EOS # 0.3 x10^3/uL (0.0-0.7); EOS % 3 % (0-3); HEMATOCRIT 42.8 % (39.0-53.0); HEMOGLOBIN 14.6 g/dL (13.0-17.5); LYMPH % 12 % (24-48); MEAN CORPUSCULAR HEMOGLOBIN 31 pg (25-35); MEAN CORPUSCULAR HGB CONC 34 g/dL (31-37); MEAN CORPUSCULAR VOLUME 92 fL (79-100); MONO # 0.7 x10^3/uL (0.0-1.1); MONO % 9 % (0-9); NEUT % 75 % (31-73); PLATELET COUNT 206 x10^3/uL (140-400); RED BLOOD COUNT 4.65 x10^6/uL (4.30-5.70); RED CELL DISTRIBUTION WIDTH 13.5 % (11.5-14.5)
[2021-04-22 00:28] LABS: CALCIUM 8.8 mg/dL (8.5-10.1); CREATININE 1.2 mg/dL (0.7-1.3); GFR 75.5; POTASSIUM 4.3 mmol/L (3.5-5.1)
[2021-04-22] MEDS ORDERED: IV NORMAL SALINE 1000ML BAG 1,000 ML IV ONE (00:30)
[2021-04-22] MEDS ORDERED: methylPREDNISolone SOD SUCC PF 125 MG/2 ML VIAL. IV ONE (00:30)
[2021-04-22] MEDS ORDERED: IPRATRPIUM/ALBUTEROL 0.5/2.5MG 3 ML NEBU. NEB ONE (00:30)
[2021-04-22] MEDS ORDERED: ALBUTEROL SULFATE 2.5 MG/3 ML NEBU. CONT NEB ONE (00:30)
[2021-04-22 00:33] LABS: ALBUMIN 3.8 g/dL (3.4-5.0); ALBUMIN/GLOBULIN RATIO 1.3 (1.0-1.7); MAGNESIUM 1.9 mg/dL (1.8-2.4); TOTAL BILIRUBIN 0.2 mg/dL (0.2-1.0); TOTAL PROTEIN 6.8 g/dL (6.4-8.2)
--- NOTE | 2021-04-22 00:45 | RAD ---
EXAMINATION: XR CHEST 2V CLINICAL HISTORY: COPD EXAM DATE/TIME: 04/21/2021 11:59 PM COMPARISON: 06/26/2020 FINDINGS: Lines, Tubes, and Devices: None. Cardiomediastinal Silhouette: Diminutive cardiac silhouette. Aortic atherosclerotic calcification. Lungs and Pleura: Pulmonary hyperexpansion. No evidence of focal airspace consolidation or pleural ef fusion. Pulmonary vasculature unremarkable. Bones and Soft Tissues: Degenerative changes of the thoracic spine. IMPRESSION: No evidence of acute cardiopulmonary abnormality. Findings consistent with COPD. Electronically signed by: Josep Isidro DO (04/22/2021 12:43 AM) [facility]
[2021-04-22 00:48] LABS: BASE EXCESS IS ARTERIAL -2 mmol/L (0-3); HCO3 IS ARTERIAL 24 mmol/L (21-28); PCO2 IS ARTERIAL 45 mmHg (35-45); PH IS ARTERIAL 7.33 (7.35-7.45); PO2 IS ARTERIAL 44 mmHg (75-100); TCO2 IS ARTERIAL 25 mmol/L (21-32)
[2021-04-22 00:49] LABS: FIO2 IS ARTERIAL 24; SAT O2 IS ARTERIAL 76 % (95-99)
[2021-04-22] MEDS ORDERED: ACETAMINOPHEN 325 MG TABLET. PO PRN (02:00)
[2021-04-22] MEDS ORDERED: ONDANSETRON PF 4 MG/2 ML VIAL. IV PRN (02:00)
[2021-04-22 03:30] VITALS: BP 112/88
--- NOTE | 2021-04-22 03:30 | NUR ---
Patient admitted to room 210 from ED. Patient alert and oriented x 4. Patient oriented to room, call light, bed and POC. See admission assessment/documentation.
--- NOTE | 2021-04-22 03:53 | EKG ---
[facility] [address] [place] [address] Test Date: 2021-04-21 Test Time: 23:54:42 Pat Name: TOD HIRSCH Department: Room: Gender: M Experimental Box Tester: : 1965 Requested By: CHARLENE BERNARD Order Number: [id number] Reading MD: Measurements Intervals [place] Rate: 94 P: 90 [place]: 194 QRS: 87 QRSD: 74 T: 55 QT: 322 QTc: 408 Interpretive Statements SINUS RHYTHM NORMAL ECG RI6.02 No previous ECG available for comparison
[2021-04-22] MEDS ORDERED: methylPREDNISolone SOD SUCC PF 125 MG/2 ML VIAL. IV SCH (06:00)
[2021-04-22 06:19] LABS: ISTAT BE VENOUS -2 mmol/L (0-3); ISTAT HCO3 VEN 24 mmol/L (24-28); ISTAT PCO2 VEN 45 mmHg (41-51); ISTAT PH VEN 7.33 (7.32-7.42); ISTAT PO2 VEN 44 mmHg (20-40); ISTAT SAT O2 VEN 76 %; ISTAT TCO2 VEN 25 mmol/L (21-32)
[2021-04-22 07:00] VITALS: BP 128/88
[2021-04-22] MEDS: IPRATRPIUM/ALBUTEROL 0.5/2.5MG 3 ML NEBU. NEB SCH ×5 (08:16→20:30)
[2021-04-22] MEDS ORDERED: BUDESONIDE 0.5 MG/2 ML NEBU. NEB ONE (10:00)
[2021-04-22] MEDS: ENOXAPARIN 40 MG/0.4 ML SYRINGE. SQ SCH (10:15)
--- NOTE | 2021-04-22 10:25 | CONS ---
DATE OF CONSULTATION: 04/22/2021 REASON FOR CONSULTATION: I was asked to see this 55-year-old gentleman for acute respiratory failure. HISTORY OF PRESENT ILLNESS: The patient has a history of [id number] smoking, quit smoking 2 months ago. He does have a diagnosis of COPD and has albuterol in-hand, but has not had a pulmonary function test. He started to have increased shortness of breath. A couple of days ago, he denies cough or sputum production. He has had wheezing. He denies chest pain. PAST MEDICAL HISTORY: COPD. ALLERGIES: No known drug allergies. MEDICATIONS: Currently, he is on DuoNeb and Solu-Medrol 125 every 8. SOCIAL HISTORY: History of [id number]-[id number] smoking, quit smoking 2 months ago. FAMILY HISTORY: Hypertension. REVIEW OF SYSTEMS: As mentioned as above, other systems otherwise negative. PHYSICAL EXAMINATION: GENERAL: This is a thin gentleman. His O2 saturation is 92%, respiratory rate 22, heart rate 95. VITAL SIGNS: Blood pressure 128/88, temperature 97.7. HEENT: Normocephalic, atraumatic. Pupils equal, round, reactive to light. Throat is clear. Nose is clear. NECK: There is no lymphadenopathy or thyromegaly. CARDIOVASCULAR: Distant heart sounds, regular rate and rhythm. Chest inspection is normal. LUNGS: There is bilateral diminished breath sounds. There is no wheezing. ABDOMEN: Soft. Bowel sounds are good. There is no mass. EXTREMITIES: There is no edema. LYMPHATICS: There is no lymphadenopathy. NEUROLOGIC: Alert and oriented. SKIN: Chronic changes. LABORATORY DATA: I reviewed the following data: Chest x-ray shows COPD, no infiltrate. ABG at midnight, pH 7.33, pCO2 of 45, pO2 of 76 on 2 liters of oxygen. Sodium 143, potassium 4.3, chloride 107, CO2 of 24, glucose is 99, BUN 7, creatinine 1.2. Troponin less than 0.01. BNP 104. WBC 8, hemoglobin 14.6, platelet 206. He had a CT of the chest done in 2018 which did show right lower lobe lung nodules. IMPRESSION: 1. Acute hypoxemic respiratory failure secondary to acute exacerbation of chronic obstructive pulmonary disease, rule out thromboembolic disease. 2. Abnormal CT of the chest. 3. Ex-smoker. PLAN AND RECOMMENDATIONS: 1. Titrate FiO2 to keep O2 saturation 92%. 2. Continue not smoking. 3. Change Solu-Medrol to 80 mg IV every 8. 4. Continue bronchodilator. 5. Add inhaled corticosteroid. 6. He would require long-acting bronchodilators as an outpatient. 7. He would require PFTs as an outpatient. 8. I will do a CT angiogram to rule out pulmonary embolism, also evaluate the lung nodules seen previously in his CT of the chest. 9. Start Lovenox for DVT prophylaxis. 10. The findings and recommendations were discussed with the patient. He understood and agreed to proceed with the plan. I have answered all of his questions. Thank you very much for allowing me to participate in care of this very nice gentleman. STELLA DR: Paz TID: [id number]
--- NOTE | 2021-04-22 10:44 | HP ---
ADMIT DATE: 04/22/2021 ADMISSION HISTORY AND PHYSICAL CHIEF COMPLAINT AND HISTORY OF PRESENT ILLNESS: This 55-year-old black male, patient of Dr. Sudheer Jarrett, has been having troubles breathing for the last week or so. He has had some cough, but nonproductive, but extremely short of breath with any exertion. He has been using his albuterol inhaler with minimal relief, presented to the Emergency Room where he was admitted with an exacerbation of his COPD after running out of his rescue inhaler. PAST MEDICAL HISTORY: Remarkable for COPD. PAST SURGICAL HISTORY: Remarkable for hemorrhoids. Smoking history states that he stopped smoking some 3 months ago. Does not abuse alcohol or drugs. FAMILY HISTORY: Noncontributory. ALLERGIES: He has no known drug allergies. HOME MEDICATIONS: Albuterol only. REVIEW OF SYSTEMS: As mentioned above. PHYSICAL EXAMINATION: GENERAL: He is a well-developed, well-nourished white male in no acute distress at rest. VITAL SIGNS: Stable. He is afebrile. O2 sats are good on room air. HEAD, EYES, EARS, NOSE AND THROAT: Unremarkable. NECK: Supple without any thyromegaly. CHEST: Decreased breath sounds with no definite wheezing. HEART: Regular rate and rhythm without S3, S4 or murmur. ABDOMEN: Soft, nontender, without hepatosplenomegaly or mass. EXTREMITIES: Without cyanosis, clubbing, edema. NEUROLOGIC: He is intact. IMPRESSION: Exacerbation of chronic obstructive pulmonary disease with shortness of breath. PLAN: Pulmonary toilet, IV steroids, pulmonary consultation. The patient would benefit from some sort of a maintenance inhaler at discharge on a regular basis to try to prevent episodes as he states he has never been on one. ANGIE/BARI HUDSON: Ladonna TID: [id number]
[2021-04-22] MEDS ORDERED: CONTRAST GIVEN. MC PRN (10:45)
[2021-04-22] MEDS ORDERED: IOHEXOL 350 MG/ML 100 ML VIAL. IV ONE (10:45)
[2021-04-22 11:00] VITALS: BP 113/79
--- NOTE | 2021-04-22 11:39 | RAD ---
EXAM: CT chest with contrast - pulmonary embolus protocol CLINICAL HISTORY: Reason: sob fu lung nodules / Spl. Instructions: IV omni 350 90 mls / History: . COMPARISON: 11/27/2017. TECHNIQUE: CT of the chest following the administration of intravenous contrast during the pulmonary arterial phase. Axial, coronal and sagittal reformatted images were generated including MIP images. ---PQRS compliance statement - One or more of the following individualized dose reduction techniques were utilized for this study: 1. Automated exposure control 2. Adjustment of the mA and/or kV according to patient size 3. Use of iterative reconstruction technique--- FINDINGS: CHEST: Diagnostic quality: Adequate. Pulmonary emboli: None seen Right heart strain: None Pulmonary arteries: Normal in caliber. Heart is not enlarged. No pericardial effusion. No pleural effusion. No pneumothorax. No mediastinal or hilar lymphadenopathy. No axillary lymphadenopathy. Trace bilateral gynecomastia. Multiple bilateral lung nodules are seen. A 5 mm left lower lobe lung nodule laterally is grossly sta ble. 5 mm right lower lobe lung nodule laterally is also stable. Left lower lobe fissural lung nodule measuring 5 mm is also stable background of emphysematous change. Additional smaller lung nodules bi laterally are grossly stable. Visualized Upper abdomen: Unremarkable Bones: No aggressive osseous lesion is seen. IMPRESSION: 1. No evidence for acute pulmonary embolus. 2. Bilateral lung nodules measuring less than 5 mm in size are grossly stable to 11/27/2017. Given tw o-year stability, no further follow-up of these lung nodules is necessary. 3. Emphysematous changes bilaterally. Electronically signed by: Jimmie Villarreal MD (04/22/2021 11:36 AM) [place]
[2021-04-22 15:00] VITALS: BP 99/48
[2021-04-22] MEDS: methylPREDNISolone SOD SUCC PF 125 MG/2 ML VIAL. IV SCH ×3 (17:08→22:16)
[2021-04-22 19:00] VITALS: BP 106/72
[2021-04-22] MEDS: BUDESONIDE 0.5 MG/2 ML NEBU. NEB SCH (20:31)
[2021-04-22 22:49] VITALS: BP 120/71
[2021-04-23 03:00] VITALS: BP 98/67
[2021-04-23 05:22] LABS: BASO # 0.1 x10^3/uL (0.0-0.2); BASO % 1 % (0-3); EOS % 0 % (0-3); HEMATOCRIT 39.9 % (39.0-53.0); HEMOGLOBIN 13.5 g/dL (13.0-17.5); LYMPH # 0.6 x10^3/uL (1.0-4.8); LYMPH % 4 % (24-48); MEAN CORPUSCULAR HEMOGLOBIN 31 pg (25-35); MEAN CORPUSCULAR HGB CONC 34 g/dL (31-37); MEAN CORPUSCULAR VOLUME 92 fL (79-100); MONO # 0.5 x10^3/uL (0.0-1.1); MONO % 3 % (0-9); NEUT # 13.7 x10^3/uL (1.8-7.7); NEUT % 92 % (31-73); PLATELET COUNT 202 x10^3/uL (140-400); RED BLOOD COUNT 4.31 x10^6/uL (4.30-5.70); RED CELL DISTRIBUTION WIDTH 13.4 % (11.5-14.5); WHITE BLOOD COUNT 14.9 x10^3/uL (4.0-11.0)
[2021-04-23] MEDS: methylPREDNISolone SOD SUCC PF 125 MG/2 ML VIAL. IV SCH ×2 (05:30→15:15)
[2021-04-23 05:41] LABS: CALCIUM 8.6 mg/dL (8.5-10.1); GFR 93.2; POTASSIUM 4.2 mmol/L (3.5-5.1)
[2021-04-23 07:00] VITALS: BP 100/73
[2021-04-23] MEDS: BUDESONIDE 0.5 MG/2 ML NEBU. NEB SCH (07:21)
[2021-04-23] MEDS: IPRATRPIUM/ALBUTEROL 0.5/2.5MG 3 ML NEBU. NEB SCH ×3 (07:21→15:25)
[2021-04-23] MEDS ORDERED: PRED-220 PO (08:31)
[2021-04-23] MEDS ORDERED: IPRA3AMP29 NEB (08:31)
--- NOTE | 2021-04-23 08:38 | PDOC3 ---
Discharge Summary Date of Admission: Apr 22, 2021 Date of Discharge: Apr 23, 2021 Follow-Up: 3-5 days Admitting Diagnosis comment: COPD exacerbation FINAL DIAGNOSIS COPD exacerbation Uninsured Limited ability to pay for long-term controlling inhalers for his COPD Nicotine dependence in remission currently Brief Hospital Course Mr. Anaya is a 55-year-old male with a past medical history of COPD and nicotine dependence, currently in remission, who presented to the emergency room for worsening shortness of breath and dry cough. He has a history of known COPD, but given self-pay status has had intermittent use of controlling inhalers due to cost. He is generally controlled with duo nebs, but recently ran out of these. He has smoked for many years of his life, however quit most recently 3 months ago. Strongly encouraged that he remain off smoking given his lung disease. He was evaluated with CTA which was negative for thromboembolic disease, and showed stability of previous pulmonary nodules with no further follow-up necessary at this time. He was evaluated with pulmonology and given IV steroids from which she has had significant improvement. He is requesting to go home today with outpatient management. He will see social work prior to discharge to determine if there is any assistance that can be obtained for his medications and if he potentially qualifies for Medicaid. All other home medications have been continued. I will check for samples at the office to see what we can do for long-term controlling inhalers. In the meantime he will take a 12-day slow taper of steroids and follow-up within the next week in the off ice. CONDITION AT DISCHARGE: Improved, Stable Discharge Medications Active Scripts Active Ventolin Hfa Inhaler (Albuterol Sulfate) 18 Gm Hfa.aer.ad 2 Puff INH QID DUONEBS neb 1 Vial NEB Q6HRS Vital Signs Vital Signs Date Time Temp Pulse Resp B/P (MAP) Pulse Ox O2 Delivery O2 Flow Rate FiO2 04/23/21 07:21 97 Room Air 04/23/21 07:00 98.0 86 18 100/73 (82) 98.0 Labs Laboratory Tests Test 04/22/21 00:02 04/22/21 00:05 04/22/21 00:19 04/22/21 00:35 Bedside Arterial pH 7.33 (7.35-7.45) Bedside Arterial pCO2 45 mmHg (35-45) Bedside Arterial pO2 44 mmHg (75-100) Arterial Blood HCO3 24 mmol/L (21-28) Bedside Arterial Blood O2 Sat 76 % (95-99) Bedside FiO2 24 24.0 White Blood Count 8.0 x10^3/uL (4.0-11.0) Red Blood Count 4.65 x10^6/uL (4.30-5.70) Hemoglobin 14.6 g/dL (13.0-17.5) Hematocrit 42.8 % (39.0-53.0) Mean Corpuscular Volume 92 fL (79-100) Mean Corpuscular Hemoglobin 31 pg (25-35) Mean Corpuscular Hemoglobin Concent 34 g/dL (31-37) Red Cell Distribution Width 13.5 % (11.5-14.5) Platelet Count 206 x10^3/uL (140-400) Neutrophils (%) (Auto) 75 % (31-73) Lymphocytes (%) (Auto) 12 % (24-48) Monocytes (%) (Auto) 9 % (0-9) Eosinophils (%) (Auto) 3 % (0-3) Basophils (%) (Auto) 1 % (0-3) Neutrophils # (Auto) 6.0 x10^3/uL (1.8-7.7) Lymphocytes # (Auto) 1.0 x10^3/uL (1.0-4.8) Monocytes # (Auto) 0.7 x10^3/uL (0.0-1.1) Eosinophils # (Auto) 0.3 x10^3/uL (0.0-0.7) Basophils # (Auto) 0.1 x10^3/uL (0.0-0.2) Sodium Level 143 mmol/L (136-145) Potassium Level 4.3 mmol/L (3.5-5.1) Chloride Level 107 mmol/L (98-107) Carbon Dioxide Level 24 mmol/L (21-32) Anion Gap 12 (6-14) Blood Urea Nitrogen 7 mg/dL (8-26) Creatinine 1.2 mg/dL (0.7-1.3) Estimated GFR (Cockcroft-Gault) 75.5 BUN/Creatinine Ratio 6 (6-20) Glucose Level 99 mg/dL (70-99) Calcium Level 8.8 mg/dL (8.5-10.1) Magnesium Level 1.9 mg/dL (1.8-2.4) Total Bilirubin 0.2 mg/dL (0.2-1.0) Aspartate Amino Transf (AST/SGOT) 26 U/L (15-37) Alanine Aminotransferase (ALT/SGPT) 32 U/L (16-63) Alkaline Phosphatase 82 U/L (46-116) Troponin I Quantitative < 0.017 ng/mL (0.000-0.055) CK-Guu-R-Type Natriuretic Peptide 104 pg/mL (0-124) Total Protein 6.8 g/dL (6.4-8.2) Albumin 3.8 g/dL (3.4-5.0) Albumin/Globulin Ratio 1.3 (1.0-1.7) Bedside Venous pH 7.33 (7.32-7.42) Bedside Venous pCO2 45 mmHg (41-51) Bedside Venous pO2 44 mmHg (20-40) Venous Blood HCO3 24 mmol/L (24-28) POC Venous O2 Saturation ([place]) 76 % D-Dimer ([place]) < 0.27 ug/mlFEU Test 04/23/21 04:30 White Blood Count 14.9 x10^3/uL (4.0-11.0) Red Blood Count 4.31 x10^6/uL (4.30-5.70) Hemoglobin 13.5 g/dL (13.0-17.5) Hematocrit 39.9 % (39.0-53.0) Mean Corpuscular Volume 92 fL (79-100) Mean Corpuscular Hemoglobin 31 pg (25-35) Mean Corpuscular Hemoglobin Concent 34 g/dL (31-37) Red Cell Distribution Width 13.4 % (11.5-14.5) Platelet Count 202 x10^3/uL (140-400) Neutrophils (%) (Auto) 92 % (31-73) Lymphocytes (%) (Auto) 4 % (24-48) Monocytes (%) (Auto) 3 % (0-9) Eosinophils (%) (Auto) 0 % (0-3) Basophils (%) (Auto) 1 % (0-3) Neutrophils # (Auto) 13.7 x10^3/uL (1.8-7.7) Lymphocytes # (Auto) 0.6 x10^3/uL (1.0-4.8) Monocytes # (Auto) 0.5 x10^3/uL (0.0-1.1) Eosinophils # (Auto) 0.0 x10^3/uL (0.0-0.7) Basophils # (Auto) 0.1 x10^3/uL (0.0-0.2) Sodium Level 141 mmol/L (136-145) Potassium Level 4.2 mmol/L (3.5-5.1) Chloride Level 108 mmol/L (98-107) Carbon Dioxide Level 22 mmol/L (21-32) Anion Gap 11 (6-14) Blood Urea Nitrogen 6 mg/dL (8-26) Creatinine 1.0 mg/dL (0.7-1.3) Estimated GFR (Cockcroft-Gault) 93.2 Glucose Level 128 mg/dL (70-99) Calcium Level 8.6 mg/dL (8.5-10.1) Laboratory Tests Test 04/23/21 04:30 White Blood Count 14.9 x10^3/uL (4.0-11.0) Red Blood Count 4.31 x10^6/uL (4.30-5.70) Hemoglobin 13.5 g/dL (13.0-17.5) Hematocrit 39.9 % (39.0-53.0) Mean Corpuscular Volume 92 fL (79-100) Mean Corpuscular Hemoglobin 31 pg (25-35) Mean Corpuscular Hemoglobin Concent 34 g/dL (31-37) Red Cell Distribution Width 13.4 % (11.5-14.5) Platelet Count 202 x10^3/uL (140-400) Neutrophils (%) (Auto) 92 % (31-73) Lymphocytes (%) (Auto) 4 % (24-48) Monocytes (%) (Auto) 3 % (0-9) Eosinophils (%) (Auto) 0 % (0-3) Basophils (%) (Auto) 1 % (0-3) Neutrophils # (Auto) 13.7 x10^3/uL (1.8-7.7) Lymphocytes # (Auto) 0.6 x10^3/uL (1.0-4.8) Monocytes # (Auto) 0.5 x10^3/uL (0.0-1.1) Eosinophils # (Auto) 0.0 x10^3/uL (0.0-0.7) Basophils # (Auto) 0.1 x10^3/uL (0.0-0.2) Sodium Level 141 mmol/L (136-145) Potassium Level 4.2 mmol/L (3.5-5.1) Chloride Level 108 mmol/L (98-107) Carbon Dioxide Level 22 mmol/L (21-32) Anion Gap 11 (6-14) Blood Urea Nitrogen 6 mg/dL (8-26) Creatinine 1.0 mg/dL (0.7-1.3) Estimated GFR (Cockcroft-Gault) 93.2 Glucose Level 128 mg/dL (70-99) Calcium Level 8.6 mg/dL (8.5-10.1) Allergies Allergies Coded Allergies Type Severity Reaction Last Updated Verified No Known Drug Allergies 11/27/17 No Disposition/Orders: D/C to Home Justicifation of Admission Dx: Justifications for Admission: Justification of Admission Dx: N/A ELIAS HANCOCK MD Apr 23, 2021 08:38
[2021-04-23] MEDS: ENOXAPARIN 40 MG/0.4 ML SYRINGE. SQ SCH (08:46)
[2021-04-23 09:54] LABS: % BANDS 6 % (0-9); % LYMPHS 9 % (24-48); % MONOS 3 % (0-10); % SEGS 82 % (35-66)
[2021-04-23 09:55] LABS: PLT ESTIMATE ADEQUATE (ADEQUATE)
[2021-04-23 11:00] VITALS: BP 92/63
--- NOTE | 2021-04-23 11:01 | PDOC ---
PULMONARY PROGRESS NOTES DATE: 04/23/21 TIME: 11:01 Vitals Vital Signs Date Time Temp Pulse Resp B/P (MAP) Pulse Ox O2 Delivery O2 Flow Rate FiO2 04/23/21 07:21 97 Room Air 04/23/21 07:00 98.0 86 18 100/73 (82) 98.0 Lungs: Other Labs Laboratory Tests Test 04/22/21 00:02 04/22/21 00:05 04/22/21 00:19 04/22/21 00:35 Bedside Arterial pH 7.33 (7.35-7.45) Bedside Arterial pCO2 45 mmHg (35-45) Bedside Arterial pO2 44 mmHg (75-100) Arterial Blood HCO3 24 mmol/L (21-28) Bedside Arterial Blood O2 Sat 76 % (95-99) Bedside FiO2 24 24.0 White Blood Count 8.0 x10^3/uL (4.0-11.0) Red Blood Count 4.65 x10^6/uL (4.30-5.70) Hemoglobin 14.6 g/dL (13.0-17.5) Hematocrit 42.8 % (39.0-53.0) Mean Corpuscular Volume 92 fL (79-100) Mean Corpuscular Hemoglobin 31 pg (25-35) Mean Corpuscular Hemoglobin Concent 34 g/dL (31-37) Red Cell Distribution Width 13.5 % (11.5-14.5) Platelet Count 206 x10^3/uL (140-400) Neutrophils (%) (Auto) 75 % (31-73) Lymphocytes (%) (Auto) 12 % (24-48) Monocytes (%) (Auto) 9 % (0-9) Eosinophils (%) (Auto) 3 % (0-3) Basophils (%) (Auto) 1 % (0-3) Neutrophils # (Auto) 6.0 x10^3/uL (1.8-7.7) Lymphocytes # (Auto) 1.0 x10^3/uL (1.0-4.8) Monocytes # (Auto) 0.7 x10^3/uL (0.0-1.1) Eosinophils # (Auto) 0.3 x10^3/uL (0.0-0.7) Basophils # (Auto) 0.1 x10^3/uL (0.0-0.2) Sodium Level 143 mmol/L (136-145) Potassium Level 4.3 mmol/L (3.5-5.1) Chloride Level 107 mmol/L (98-107) Carbon Dioxide Level 24 mmol/L (21-32) Anion Gap 12 (6-14) Blood Urea Nitrogen 7 mg/dL (8-26) Creatinine 1.2 mg/dL (0.7-1.3) Estimated GFR (Cockcroft-Gault) 75.5 BUN/Creatinine Ratio 6 (6-20) Glucose Level 99 mg/dL (70-99) Calcium Level 8.8 mg/dL (8.5-10.1) Magnesium Level 1.9 mg/dL (1.8-2.4) Total Bilirubin 0.2 mg/dL (0.2-1.0) Aspartate Amino Transf (AST/SGOT) 26 U/L (15-37) Alanine Aminotransferase (ALT/SGPT) 32 U/L (16-63) Alkaline Phosphatase 82 U/L (46-116) Troponin I Quantitative < 0.017 ng/mL (0.000-0.055) UQ-Lce-B-Type Natriuretic Peptide 104 pg/mL (0-124) Total Protein 6.8 g/dL (6.4-8.2) Albumin 3.8 g/dL (3.4-5.0) Albumin/Globulin Ratio 1.3 (1.0-1.7) Bedside Venous pH 7.33 (7.32-7.42) Bedside Venous pCO2 45 mmHg (41-51) Bedside Venous pO2 44 mmHg (20-40) Venous Blood HCO3 24 mmol/L (24-28) POC Venous O2 Saturation ([place]) 76 % D-Dimer ([place]) < 0.27 ug/mlFEU Test 04/23/21 04:30 White Blood Count 14.9 x10^3/uL (4.0-11.0) Red Blood Count 4.31 x10^6/uL (4.30-5.70) Hemoglobin 13.5 g/dL (13.0-17.5) Hematocrit 39.9 % (39.0-53.0) Mean Corpuscular Volume 92 fL (79-100) Mean Corpuscular Hemoglobin 31 pg (25-35) Mean Corpuscular Hemoglobin Concent 34 g/dL (31-37) Red Cell Distribution Width 13.4 % (11.5-14.5) Platelet Count 202 x10^3/uL (140-400) Neutrophils (%) (Auto) 92 % (31-73) Lymphocytes (%) (Auto) 4 % (24-48) Monocytes (%) (Auto) 3 % (0-9) Eosinophils (%) (Auto) 0 % (0-3) Basophils (%) (Auto) 1 % (0-3) Neutrophils # (Auto) 13.7 x10^3/uL (1.8-7.7) Lymphocytes # (Auto) 0.6 x10^3/uL (1.0-4.8) Monocytes # (Auto) 0.5 x10^3/uL (0.0-1.1) Eosinophils # (Auto) 0.0 x10^3/uL (0.0-0.7) Basophils # (Auto) 0.1 x10^3/uL (0.0-0.2) Segmented Neutrophils % 82 % (35-66) Band Neutrophils % 6 % (0-9) Lymphocytes % 9 % (24-48) Monocytes % 3 % (0-10) Platelet Estimate Adequate (ADEQUATE) Sodium Level 141 mmol/L (136-145) Potassium Level 4.2 mmol/L (3.5-5.1) Chloride Level 108 mmol/L (98-107) Carbon Dioxide Level 22 mmol/L (21-32) Anion Gap 11 (6-14) Blood Urea Nitrogen 6 mg/dL (8-26) Creatinine 1.0 mg/dL (0.7-1.3) Estimated GFR (Cockcroft-Gault) 93.2 Glucose Level 128 mg/dL (70-99) Calcium Level 8.6 mg/dL (8.5-10.1) Laboratory Tests Test 04/23/21 04:30 White Blood Count 14.9 x10^3/uL (4.0-11.0) Red Blood Count 4.31 x10^6/uL (4.30-5.70) Hemoglobin 13.5 g/dL (13.0-17.5) Hematocrit 39.9 % (39.0-53.0) Mean Corpuscular Volume 92 fL (79-100) Mean Corpuscular Hemoglobin 31 pg (25-35) Mean Corpuscular Hemoglobin Concent 34 g/dL (31-37) Red Cell Distribution Width 13.4 % (11.5-14.5) Platelet Count 202 x10^3/uL (140-400) Neutrophils (%) (Auto) 92 % (31-73) Lymphocytes (%) (Auto) 4 % (24-48) Monocytes (%) (Auto) 3 % (0-9) Eosinophils (%) (Auto) 0 % (0-3) Basophils (%) (Auto) 1 % (0-3) Neutrophils # (Auto) 13.7 x10^3/uL (1.8-7.7) Lymphocytes # (Auto) 0.6 x10^3/uL (1.0-4.8) Monocytes # (Auto) 0.5 x10^3/uL (0.0-1.1) Eosinophils # (Auto) 0.0 x10^3/uL (0.0-0.7) Basophils # (Auto) 0.1 x10^3/uL (0.0-0.2) Segmented Neutrophils % 82 % (35-66) Band Neutrophils % 6 % (0-9) Lymphocytes % 9 % (24-48) Monocytes % 3 % (0-10) Platelet Estimate Adequate (ADEQUATE) Sodium Level 141 mmol/L (136-145) Potassium Level 4.2 mmol/L (3.5-5.1) Chloride Level 108 mmol/L (98-107) Carbon Dioxide Level 22 mmol/L (21-32) Anion Gap 11 (6-14) Blood Urea Nitrogen 6 mg/dL (8-26) Creatinine 1.0 mg/dL (0.7-1.3) Estimated GFR (Cockcroft-Gault) 93.2 Glucose Level 128 mg/dL (70-99) Calcium Level 8.6 mg/dL (8.5-10.1) Medications Active Scripts Medications Dose Route/Sig Max Daily Dose Days Date Category Symbicort 80-4.5 Mcg Inhaler (Budesonide/Formoterol Fumarate) 10.2 Gm Hfa.aer.ad 2 Puff IH BID 06/26/20 Rx Ventolin Hfa Inhaler (Albuterol Sulfate) 18 Gm Hfa.aer.ad 2 Puff INH QID 06/26/20 Rx Albuterol Sulfate Conc Neb Soln (Albuterol Sulfate) 2.5 Mg/0.5 Ml Vial.neb 1 Vial NEB Q4-6HRS PRN 11/03/19 Rx Proair Hfa (Albuterol Sulfate) 8.5 Gm Hfa.aer.ad 2 Puff IH PRN Q4-6HRS PRN 21 11/03/19 Rx Albuterol Sulfate Conc Neb Soln (Albuterol Sulfate) 2.5 Mg/0.5 Ml Vial.neb 1 Vial NEB Q6HRS 05/10/19 Rx Ventolin Hfa Inhaler (Albuterol Sulfate) 18 Gm Hfa.aer.ad 1 Puff INH Q4HRS 12/01/17 Rx Impression . IMPRESSION: 1. Acute hypoxemic respiratory failure secondary to acute exacerbation of chronic obstructive pulmonary disease 2. Abnormal CT of the chest. 3. Ex-smoker. 4. NO PE on ct chest 5. Stable nudules in compatison to 2018 IMPRESSION: 1. No evidence for acute pulmonary embolus. 2. Bilateral lung nodules measuring less than 5 mm in size are grossly stable to 11/27/2017. Given two-year stability, no further follow-up of these lung nodules is necessary. 3. Emphysematous changes bilaterally. Plan . UPDATE 04/23 D/C TODAY FOLLOW UP IN [address] CHEST INFORMED PT ON NEW GUIDELINES REQUIRING YEARLY CT CHEST PLAN AND RECOMMENDATIONS: 1. Titrate FiO2 to keep O2 saturation 92%. 2. Continue not smoking. 3. Change Solu-Medrol to 80 mg IV every 8. 4. Continue bronchodilator. 5. Add inhaled corticosteroid. 6. He would require long-acting bronchodilators as an outpatient. 7. He would require PFTs as an outpatient. 8. I will do a CT angiogram to rule out pulmonary embolism, also evaluate the lung nodules seen previously in his CT of the chest. 9. Start Lovenox for DVT prophylaxis. 10. The findings and recommendations were discussed with the patient. He understood and agreed to proceed with the plan. I have answered all of his questions. Thank you very much for allowing me to participate in care of this very nice gentleman. IRMA ZARAGOZA MD Apr 23, 2021 11:01
[2021-04-23 15:00] VITALS: BP 111/71
--- NOTE | 2021-04-23 15:57 | NUR ---
patient verbalized understanding of discharge instructions. discharged home with self care
== END 2021-04-23 15:45 | disposition home or self-care (01) ==
LOC: ER 23:48 → 2 NORTH 04-22 03:19 → 4 NORTH 04-22 11:09
PROVIDERS: ADMIT Family Medicine; ATTEND Family Medicine
DX: J96.01 Acute respiratory failure with hypoxia (principal); J44.1 Chronic obstructive pulmonary disease with (acute) exacerbation; K64.9 Unspecified hemorrhoids; R93.1 Abnormal findings on diagnostic imaging of heart and coronary circulation; Z87.891 Personal history of nicotine dependence
CPT/HCPCS: 36415; 71046; 71275; 80048; 80053; 82803; 83735; 83880; 84484; 85007; 85025; 85379; 93005; 94640; 94644; 96361; 96372; 96374; 96376; 99285; G0378; J1650; J2930; J7030; J7613; J7626; Q9967; G0379

== ENCOUNTER 2021-05-25 20:26 | Inpatient (IN) | payer OTHER ==
[~2021-05-25] VITALS: Ht 182.9 cm; Wt 68.2 kg
[~2021-05-25 20:26] MED LIST changes: +IPRA3AMP29 NEB
[2021-05-25] MEDS ORDERED: DEXAMETHASONE SOD PHOS 4 MG/ML VIAL IVP ONE (20:45)
[2021-05-25] MEDS ORDERED: IPRATRPIUM/ALBUTEROL 0.5/2.5MG 3 ML NEBU. NEB ONE (20:45)
[2021-05-25 20:49] LABS: BASO % 1 % (0-3); EOS # 0.2 x10^3/uL (0.0-0.7); EOS % 3 % (0-3); HEMATOCRIT 42.4 % (39.0-53.0); HEMOGLOBIN 14.4 g/dL (13.0-17.5); LYMPH # 1.3 x10^3/uL (1.0-4.8); LYMPH % 22 % (24-48); MEAN CORPUSCULAR HEMOGLOBIN 31 pg (25-35); MEAN CORPUSCULAR HGB CONC 34 g/dL (31-37); MEAN CORPUSCULAR VOLUME 92 fL (79-100); MONO # 0.6 x10^3/uL (0.0-1.1); MONO % 11 % (0-9); NEUT # 3.6 x10^3/uL (1.8-7.7); NEUT % 64 % (31-73); PLATELET COUNT 198 x10^3/uL (140-400); RED BLOOD COUNT 4.59 x10^6/uL (4.30-5.70); RED CELL DISTRIBUTION WIDTH 13.2 % (11.5-14.5); WHITE BLOOD COUNT 5.7 x10^3/uL (4.0-11.0)
[2021-05-25 20:59] LABS: CALCIUM 8.9 mg/dL (8.5-10.1); CREATININE 1.1 mg/dL (0.7-1.3); GFR 83.5; POTASSIUM 3.9 mmol/L (3.5-5.1)
[2021-05-25 21:01] LABS: BASE EXCESS COOX -3 mmol/L (-3-3); HCO3 COOX 23 mmol/L (21-28); METHEMOGLOBIN 0.5 % (0.0-1.9); OXYHEMOGLOBIN 94.4 %; PCO2 COOX 42 mmHg (35-46); PO2 COOX 148 mmHg (75-108); SAT O2 COOX 98 % (92-99)
[2021-05-25 21:04] LABS: ALBUMIN 3.5 g/dL (3.4-5.0); ALBUMIN/GLOBULIN RATIO 0.9 (1.0-1.7); MAGNESIUM 2.3 mg/dL (1.8-2.4); TOTAL BILIRUBIN 0.2 mg/dL (0.2-1.0); TOTAL PROTEIN 7.3 g/dL (6.4-8.2)
--- NOTE | 2021-05-25 21:11 | RAD ---
AP chest. HISTORY: Dyspnea, COPD AP view was taken of the chest. There is hyperexpansion consistent with COPD. There are no acute infi ltrates. There is no effusion. Heart is normal in size. IMPRESSION: 1. Hyperexpansion consistent with COPD. 2. No acute infiltrates. Electronically signed by: Emmanuel Adams MD (05/25/2021 9:08 PM) [facility]
[2021-05-25] MEDS ORDERED: ONDANSETRON PF 4 MG/2 ML VIAL. IV PRN (23:00)
[2021-05-25] MEDS ORDERED: IPRATRPIUM/ALBUTEROL 0.5/2.5MG 3 ML NEBU. NEB PRN (23:00)
[2021-05-25] MEDS ORDERED: ACETAMINOPHEN 325 MG TABLET. PO PRN (23:00)
--- NOTE | 2021-05-25 23:00 | PHYS DOC ---
Past Medical History Past Medical History: COPD Past Surgical History: Other Additional Past Surgical Histo: HEMORRHOID Smoking Status: Current Every Day Smoker Alcohol Use: None Drug Use: None General Adult EDM: Chief Complaint: SHORTNESS OF BREATH HPI: HPI: Patient is a 55 year old [f__sex] who presents with [] Review of Systems: Review of Systems: Constitutional: Denies fever or chills. [] Eyes: Denies change in visual acuity. [] HENT: Denies nasal congestion or sore throat. [] Respiratory: Denies cough or shortness of breath. [] Cardiovascular: Denies chest pain or edema. [] GI: Denies abdominal pain, nausea, vomiting, bloody stools or diarrhea. [] : Denies dysuria. [] Musculoskeletal: Denies back pain or joint pain. [] Integument: Denies rash. [] Neurologic: Denies headache, focal weakness or sensory changes. [] Endocrine: Denies polyuria or polydipsia. [] Lymphatic: Denies swollen glands. [] Psychiatric: Denies depression or anxiety. [] Heart Score: Risk Factors: Risk Factors: DM, Current or recent (<one month) smoker, HTN, HLP, family history of CAD, obesity. Risk Scores: Score 0 - 3: 2.5% MACE over next 6 weeks - Discharge Home Score 4 - 6: 20.3% MACE over next 6 weeks - Admit for Clinical Observation Score 7 - 10: 72.7% MACE over next 6 weeks - Early Invasive Strategies Current Medications: Current Medications Medications (Trade) Dose Ordered Sig/Melo Start Time Stop Time Status Last Admin Dose Admin Albuterol/ Ipratropium (Duoneb) 3 ml 1X ONCE 05/25/21 20:45 05/25/21 20:46 DC 05/25/21 20:45 3 ML Dexamethasone Sodium Phosphate (Decadron) 10 mg 1X ONCE 05/25/21 20:45 05/25/21 20:46 DC 05/25/21 22:01 10 MG Allergies: Allergies: Allergies Coded Allergies Type Severity Reaction Last Updated Verified No Known Drug Allergies 11/27/17 No Physical Exam: PE: Constitutional: Well developed, well nourished, no acute distress, non-toxic appearance. [] HENT: Normocephalic, atraumatic, bilateral external ears normal, oropharynx moist, no oral exudates, nose normal. [] Eyes: PERRLA, EOMI, conjunctiva normal, no discharge. [] Neck: Normal range of motion, no tenderness, supple, no stridor. [] Cardiovascular:Heart rate regular rhythm, no murmur [] Lungs & Thorax: Bilateral breath sounds clear to auscultation [] Abdomen: Bowel sounds normal, soft, no tenderness, no masses, no pulsatile masses. [] Skin: Warm, dry, no erythema, no rash. [] Back: No tenderness, no CVA tenderness. [] Extremities: No tenderness, no cyanosis, no clubbing, ROM intact, no edema. [] Neurologic: Alert and oriented X 3, normal motor function, normal sensory funct ion, no focal deficits noted. [] Psychologic: Affect normal, judgement normal, mood normal. [] Current Patient Data: Labs: Laboratory Tests Test 05/25/21 20:40 05/25/21 20:55 White Blood Count 5.7 x10^3/uL (4.0-11.0) Red Blood Count 4.59 x10^6/uL (4.30-5.70) Hemoglobin 14.4 g/dL (13.0-17.5) Hematocrit 42.4 % (39.0-53.0) Mean Corpuscular Volume 92 fL (79-100) Mean Corpuscular Hemoglobin 31 pg (25-35) Mean Corpuscular Hemoglobin Concent 34 g/dL (31-37) Red Cell Distribution Width 13.2 % (11.5-14.5) Platelet Count 198 x10^3/uL (140-400) Neutrophils (%) (Auto) 64 % (31-73) Lymphocytes (%) (Auto) 22 % (24-48) L Monocytes (%) (Auto) 11 % (0-9) H Eosinophils (%) (Auto) 3 % (0-3) Basophils (%) (Auto) 1 % (0-3) Neutrophils # (Auto) 3.6 x10^3/uL (1.8-7.7) Lymphocytes # (Auto) 1.3 x10^3/uL (1.0-4.8) Monocytes # (Auto) 0.6 x10^3/uL (0.0-1.1) Eosinophils # (Auto) 0.2 x10^3/uL (0.0-0.7) Basophils # (Auto) 0.0 x10^3/uL (0.0-0.2) Sodium Level 139 mmol/L (136-145) Potassium Level 3.9 mmol/L (3.5-5.1) Chloride Level 103 mmol/L (98-107) Carbon Dioxide Level 26 mmol/L (21-32) Anion Gap 10 (6-14) Blood Urea Nitrogen 6 mg/dL (8-26) L Creatinine 1.1 mg/dL (0.7-1.3) Estimated GFR (Cockcroft-Gault) 83.5 BUN/Creatinine Ratio 5 (6-20) L Glucose Level 100 mg/dL (70-99) H Calcium Level 8.9 mg/dL (8.5-10.1) Magnesium Level 2.3 mg/dL (1.8-2.4) Total Bilirubin 0.2 mg/dL (0.2-1.0) Aspartate Amino Transferase (AST) 23 U/L (15-37) Alanine Aminotransferase (ALT) 34 U/L (16-63) Alkaline Phosphatase 84 U/L (46-116) Creatine Kinase 155 U/L (39-308) Creatine Kinase MB (Mass) 1.5 ng/mL (0.0-3.6) Creatine Kinase MB Relative Index 1.0 % (0-4) Troponin I Quantitative < 0.017 ng/mL (0.000-0.055) TC-Uzf-T-Type Natriuretic Peptide 60 pg/mL (0-124) Total Protein 7.3 g/dL (6.4-8.2) Albumin 3.5 g/dL (3.4-5.0) Albumin/Globulin Ratio 0.9 (1.0-1.7) L O2 Saturation 98 % (92-99) Arterial Blood pH 7.36 (7.35-7.45) Arterial Blood pCO2 at Patient Temp 42 mmHg (35-46) Arterial Blood pO2 at Patient Temp 148 mmHg (75-108) H Arterial Blood HCO3 23 mmol/L (21-28) Arterial Blood Base Excess -3 mmol/L (-3-3) Oxyhemoglobin 94.4 % Methemoglobin 0.5 % (0.0-1.9) Carbon Monoxide, Quantitative 3.5 % (0.0-1.9) H FiO2 100 Laboratory Tests 05/25/21 20:40 Laboratory Tests 05/25/21 20:40 Vital Signs: Vital Signs Date Time Temp Pulse Resp B/P (MAP) Pulse Ox O2 Delivery O2 Flow Rate FiO2 05/25/21 20:40 100 BiPAP/CPAP 05/25/21 20:30 98.6 110 25 138/94 (84) 98.6 EKG: EKG: @2036 Sinus tachycardia at 109bpm, NO ST elevation, QRS 74ms, QT/QTc 306/414ms Radiology/Procedures: Radiology/Procedures: [] Course & Med Decision Making: Course & Med Decision Making Pertinent Labs and Imaging studies reviewed. (See chart for details) [] Dragon Disclaimer: Dragon Disclaimer: This electronic medical record was generated, in whole or in part, using a voice recognition dictation system. Departure Departure Impression: Primary Impression: Respiratory failure Qualified Codes: J96.01 - Acute respiratory failure with hypoxia Additional Impressions: COPD exacerbation Hypoxia Disposition: ADMITTED INPATIENT Admitting Physician: Sudheer Jarrett Condition: STABLE Referrals: ELIAS HANCOCK MD (PCP) Critical Care Time Critical care time was 30 minutes which includes time at bedside, spent in discussion of patient's care with specialists and/or family members, with interpretation of laboratory and/or radiological studies and is exclusive of procedures. DASHA RANDLE DO May 25, 2021 23:00
[2021-05-26 01:05] VITALS: BP 114/88
--- NOTE | 2021-05-26 02:37 | EKG ---
[facility] [address] [place] [address] Test Date: 2021-05-25 Test Time: 20:36:46 Pat Name: TOD HIRSCH Department: Room: Gender: M [employer]: : 1965 Requested By: DASHA RANDLE Order Number: [id number] Reading MD: Measurements Intervals [place] Rate: 109 P: 77 RI: 168 QRS: 85 QRSD: 74 T: 57 QT: 306 QTc: 414 Interpretive Statements SINUS TACHYCARDIA OTHERWISE NORMAL ECG RI6.01 No previous ECG available for comparison
[2021-05-26 03:50] VITALS: BP 116/76
[2021-05-26 07:00] VITALS: BP 107/76
--- NOTE | 2021-05-26 08:15 | NUR ---
PT IS READY TO GO HOME. PT DOES NOT WEAR OXYGEN AT HOME. PT WAS TAKEN OFF OXYGEN AND SPO2 MONITORED. SPO2 ON RA 96-97% CONSISTENTLY. PT ASYMPTOMATIC.
--- NOTE | 2021-05-26 09:56 | PDOC ---
Provider Note Date of Service: DATE: 05/26/21 TIME: 09:55 Provider Note [id number] Justifications for Admission Other Justification VIKRAM PETIT MD May 26, 2021 09:56
--- NOTE | 2021-05-26 10:17 | DS ---
DATE OF DISCHARGE: 05/26/2021 HOSPITAL SUMMARY: A 55-year-old black male with chronic tobacco abuse and COPD came in with acute dyspnea and exacerbation. He responded to BiPAP and has done well overnight and is feeling better this morning. His blood gases did not show respiratory acidosis. Chemistry profile, troponin, and CBC were unremarkable. COVID serology initially was negative and a chest x-ray showed hyperexpansion with COPD, but no acute changes. He is afebrile. He has good oxygen saturation on room air and he is comfortable to be discharged and followed as an outpatient at this point. FINAL DIAGNOSES: 1. Acute exacerbation of chronic obstructive pulmonary disease. 2. Chronic tobacco abuse. OPERATIONS, PROCEDURES, COMPLICATIONS, AND CONSULTATIONS: None. DISPOSITION: Continue home meds with the addition of prednisone 40 mg daily for 4 days and follow up as needed and he can return to the hospital at any time if his dyspnea recurs. Prognosis is guarded because of continued tobacco abuse. JOSE DR: Volodymyr TID: [id number]
--- NOTE | 2021-05-26 11:23 | NUR ---
Discharge Note: TOD HIRSCH Discharge instructions and discharge home medications reviewed with Patient and a copy given. All questions have been answered and understanding verbalized. The following instructions and handouts were given: SMOKING CESSATION, CHF, COPD Discontinued lines and drains: Peripheral IV intact. Patient discharged to Home or Self Care with Spouse via Wheelchair
== END 2021-05-26 11:30 | disposition home or self-care (01) | DRG 192 ==
LOC: ER 20:26 → 2 SOUTH 23:49
PROVIDERS: ADMIT Family Medicine; ATTEND Family Medicine
PROC: 5A09357 Assistance with Respiratory Ventilation, Less than 24 Consecutive Hours, Continuous Positive Airway Pressure (ICD-10-PCS; principal; 2021-05-25)
DX: J44.1 Chronic obstructive pulmonary disease with (acute) exacerbation (principal); Z72.0 Tobacco use; Z79.899 Other long term (current) drug therapy
CPT/HCPCS: 36415; 36600; 71045; 80053; 82553; 82805; 83735; 83880; 84484; 85025; 93005; 94640; 94660; 94760; 96374; J1100; U0003; U0005; 99291-25; G0378

== ENCOUNTER → 2022-01-28 | Outpatient (CLI) | payer OTHER, MEDICARE ==
--- NOTE | 2022-01-29 02:34 | RAD ---
EXAMINATION: XR CHEST 2V CLINICAL HISTORY: CHRONIC OBSTRUCTIVE PULMONARY DISEASE. EXAM DATE/TIME: 01/28/2022 3:07 PM COMPARISON: 05/25/2021 FINDINGS: Lines, Tubes, and Devices: None. Cardiomediastinal Silhouette: Normal heart size. Aortic atherosclerotic calcification. Lungs and Pleura: Pulmonary hyperexpansion, similar to prior study. No evidence of focal airspace con solidation or pleural effusion. Pulmonary vasculature unremarkable. Bones and Soft Tissues: No acute osseous abnormality. IMPRESSION: No evidence of acute cardiopulmonary abnormality or significant interval change. Electronically signed by: Josep Isidro DO (01/29/2022 2:32 AM) [facility]
== END ==
LOC: RAD 13:29
PROVIDERS: ATTEND Family Medicine
DX: J44.9 Chronic obstructive pulmonary disease, unspecified (principal)
CPT/HCPCS: 71046

== ENCOUNTER → 2022-02-11 | Outpatient (CLI) | payer MEDICARE ==
--- NOTE | 2022-02-11 17:26 | RAD ---
CT THORAX WO INDICATION: ABNORMAL CT. EX-SMOKER . COMPARISON STUDY: 04/22/2021. TECHNIQUE: Unenhanced axial images were obtained through the lungs and upper abdomen. Coronal and sa gittal multiplanar reconstructions were also obtained. PQRS compliance statement: One or more of the following individualized dose reduction techniques were utilized for this examinat ion: 1. Automated exposure control 2. Adjustment of the mA and/or kV according to patient size 3. Use of iterative reconstruction technique FINDINGS: Lungs and Airways: No pulmonary mass or consolidation. Few small pulmonary nodules demonstrate contin ued long-term stability client relations representative nodule as follows: Stable left lower lobe 5 mm nodule (series 2 image 54). Calcified pulmonary granuloma. Centrilobular and paraseptal emphysema. Normal central ai rways. Pleura: The pleural spaces are normal. Heart and Mediastinum: The visualized thyroid gland is normal in size and attenuation. No axillary or supraclavicular lymphadenopathy. No mediastinal, hilar or retrocrural lymphadenopathy. The heart and pericardium are within normal limits. Coronary artery atherosclerotic disease. Atherosclerosis of th e thoracic aorta. Abdomen: Calcified splenic granulomas. Bones and Soft Tissues: Degenerative changes of the spine. IMPRESSION: 1. Small pulmonary nodules demonstrate continued long-term stability and are presumed benign. 2. Emphysema. 3. Coronary artery atherosclerotic disease. Electronically signed by: Tez Yousif MD (02/11/2022 5:24 PM) [id number]
== END ==
LOC: CT 13:30
PROVIDERS: ATTEND Internal Medicine Pulmonary Disease
DX: R91.8 Other nonspecific abnormal finding of lung field (principal); I25.10 Atherosclerotic heart disease of native coronary artery without angina pectoris; J43.2 Centrilobular emphysema; I70.0 Atherosclerosis of aorta; J84.10 Pulmonary fibrosis, unspecified; D73.89 Other diseases of spleen; M47.819 Spondylosis without myelopathy or radiculopathy, site unspecified
CPT/HCPCS: 71250